=== PATIENT | male | born 1975 | race Caucasian/White ===

== ENCOUNTER 2021-05-15 12:23 | Emergency (ER) | payer OTHER ==
[~2021-05-15] VITALS: Ht 188 cm; Wt 163.3 kg
[~2021-05-15 12:23] MED LIST: AMOX500 PO; ATOR40TA; Cleocin HCl300 MG PO; HYDACE5 PO; PENVK500 PO; PIOG15; PRED20 PO; Prilosec Otc20 MG; ZESTORETIC 20-121 EA
[2021-05-15] MEDS ORDERED: CLIN300 PO (12:46)
== END 2021-05-15 12:45 | disposition home or self-care (01) ==
LOC: ER 12:23
DX: K04.7 Periapical abscess without sinus (principal); I10 Essential (primary) hypertension; Z88.0 Allergy status to penicillin; Z79.899 Other long term (current) drug therapy
CPT/HCPCS: 99282

== ENCOUNTER 2022-08-16 09:02 | Emergency (ER) | payer OTHER ==
[~2022-08-16] VITALS: Ht 188 cm; Wt 163.3 kg
[~2022-08-16 09:02] MED LIST changes: +CLIN300 PO
[2022-08-16 10:02] LABS: BASOPHILS ABSOLUTE AUTO 0.05 K/mm3 (0.00-0.23); BASOPHILS PERCENT AUTO 1 % (0-2); EOSINOPHILS ABSOLUTE AUTO 0.05 K/mm3 (0.00-0.68); EOSINOPHILS PERCENT AUTO 1 % (0-6); Hematocrit 38.5 % (37.0-53.0); IMMATURE GRAN ABSOLUTE AUTO 0.01 K/mm3 (0.00-0.10); IMMATURE GRAN PERCENT AUTO 0 % (0-1); LYMPHOCYTES ABSOLUTE AUTO 1.08 K/mm3 (0.84-5.20); LYMPHOCYTES PERCENT AUTO 17 % (21-46); MONOCYTES ABSOLUTE AUTO 0.58 K/mm3 (0.16-1.47); MONOCYTES PERCENT AUTO 9 % (4-13); Mean Corpuscular HGB 37.4 pg (26.0-34.0); Mean Corpuscular HGB Conc 36.4 g/dL (31.5-36.5); Mean Corpuscular Volume 103 fL (80-100); Mean Platelet Volume 8.9 fL (9.1-12.4); NEUTROPHILS ABSOLUTE AUTO 4.77 K/mm3 (1.96-9.15); NEUTROPHILS PERCENT AUTO 73 % (41-73); Platelet Count 413 K/mm3 (150-400); RDW Coefficient Variation 13.3 % (11.7-14.2); RDW Standard Deviation 51.2 fL (35.1-46.3); Red Blood Cell Count 3.74 M/mm3 (4.30-5.90); White Blood Cell Count 6.54 K/mm3 (4.00-11.30)
[2022-08-16 10:25] LABS: Albumin, Blood 3.1 g/dL (3.4-5.0); Albumin/Globulin Ratio 0.9 (0.8-1.8); Bilirubin, Total 0.6 mg/dL (0.1-1.0); Bun/Creatinine Ratio 11.1 (12.0-20.0); Creatinine, Blood 0.63 mg/dL (0.60-1.20); Globulin, Blood 3.6 g/dL (2.2-4.0); Total Protein, Blood 6.7 g/dL (6.4-8.2)
== END 2022-08-16 13:26 | disposition home or self-care (01) ==
LOC: ER 09:02
PROVIDERS: Emergency Medicine
DX: R20.2 Paresthesia of skin (principal); M54.9 Dorsalgia, unspecified; I10 Essential (primary) hypertension; J44.9 Chronic obstructive pulmonary disease, unspecified; F17.200 Nicotine dependence, unspecified, uncomplicated
CPT/HCPCS: 36415; 80053; 85025; 93005; 93010; 99284-25

== ENCOUNTER 2022-12-04 01:37 | Inpatient (IN) | payer OTHER ==
[~2022-12-04] VITALS: Ht 188 cm; Wt 151.0 kg
[~2022-12-04 01:37] MED LIST changes: -ATOR40TA; +ATOR40TA PO; +OMEP20ER PO; -Prilosec Otc20 MG; -ZESTORETIC 20-121 EA; +ZESTORETIC 20-121 EA PO
[2022-12-04 02:19] LABS: BASOPHILS ABSOLUTE AUTO 0.02 K/mm3 (0.00-0.23); BASOPHILS PERCENT AUTO 0 % (0-2); EOSINOPHILS PERCENT AUTO 0 % (0-6); Hemoglobin 16.8 g/dL (13.5-17.5); IMMATURE GRAN ABSOLUTE AUTO 0.04 K/mm3 (0.00-0.10); IMMATURE GRAN PERCENT AUTO 0 % (0-1); LYMPHOCYTES ABSOLUTE AUTO 0.87 K/mm3 (0.84-5.20); LYMPHOCYTES PERCENT AUTO 9 % (21-46); MONOCYTES ABSOLUTE AUTO 1.03 K/mm3 (0.16-1.47); MONOCYTES PERCENT AUTO 11 % (4-13); Mean Corpuscular HGB 33.1 pg (26.0-34.0); Mean Corpuscular HGB Conc 34.3 g/dL (31.5-36.5); Mean Corpuscular Volume 97 fL (80-100); Mean Platelet Volume 9.5 fL (9.1-12.4); NEUTROPHILS ABSOLUTE AUTO 7.58 K/mm3 (1.96-9.15); NEUTROPHILS PERCENT AUTO 80 % (41-73); Platelet Count 255 K/mm3 (150-400); RDW Coefficient Variation 16.4 % (11.7-14.2); RDW Standard Deviation 58.4 fL (35.1-46.3); Red Blood Cell Count 5.07 M/mm3 (4.30-5.90); White Blood Cell Count 9.54 K/mm3 (4.00-11.30)
[2022-12-04 02:32] LABS: Albumin, Blood 2.8 g/dL (3.4-5.0); Albumin/Globulin Ratio 0.7 (0.8-1.8); Bilirubin, Total 1.9 mg/dL (0.1-1.0); Bun/Creatinine Ratio 13.4 (12.0-20.0); Creatinine, Blood 0.82 mg/dL (0.60-1.20); Globulin, Blood 4.2 g/dL (2.2-4.0); Potassium, Blood 3.3 mmol/L (3.5-5.5)
[2022-12-04 07:43] LABS: Bun/Creatinine Ratio 16.1 (12.0-20.0); Calcium, Blood 8.8 mg/dL (8.5-10.1); Creatinine, Blood 0.68 mg/dL (0.60-1.20); Potassium, Blood 3.6 mmol/L (3.5-5.5)
[2022-12-05] MEDS ORDERED: Prinivil10 MG PO (02:19)
[2022-12-05] MEDS ORDERED: FLUT1DIS5 INH (08:32)
[2022-12-05 09:34] LABS: BASOPHILS ABSOLUTE AUTO 0.02 K/mm3 (0.00-0.23); BASOPHILS PERCENT AUTO 0 % (0-2); EOSINOPHILS ABSOLUTE AUTO 0.03 K/mm3 (0.00-0.68); EOSINOPHILS PERCENT AUTO 0 % (0-6); Hematocrit 43.4 % (37.0-53.0); IMMATURE GRAN ABSOLUTE AUTO 0.02 K/mm3 (0.00-0.10); IMMATURE GRAN PERCENT AUTO 0 % (0-1); LYMPHOCYTES ABSOLUTE AUTO 1.02 K/mm3 (0.84-5.20); LYMPHOCYTES PERCENT AUTO 13 % (21-46); MONOCYTES ABSOLUTE AUTO 1.16 K/mm3 (0.16-1.47); MONOCYTES PERCENT AUTO 15 % (4-13); Mean Corpuscular HGB 33.2 pg (26.0-34.0); Mean Corpuscular HGB Conc 34.6 g/dL (31.5-36.5); Mean Corpuscular Volume 96 fL (80-100); NEUTROPHILS ABSOLUTE AUTO 5.65 K/mm3 (1.96-9.15); NEUTROPHILS PERCENT AUTO 71 % (41-73); Platelet Count 209 K/mm3 (150-400); RDW Coefficient Variation 16.6 % (11.7-14.2); RDW Standard Deviation 58.6 fL (35.1-46.3); Red Blood Cell Count 4.52 M/mm3 (4.30-5.90)
[2022-12-05 09:47] LABS: Calcium, Blood 8.1 mg/dL (8.5-10.1); Creatinine, Blood 0.67 mg/dL (0.60-1.20); Potassium, Blood 3.4 mmol/L (3.5-5.5)
[2022-12-06 07:07] LABS: Albumin, Blood 2.1 g/dL (3.4-5.0); Albumin/Globulin Ratio 0.6 (0.8-1.8); Bilirubin, Total 1.1 mg/dL (0.1-1.0); Bun/Creatinine Ratio 19.3 (12.0-20.0); Creatinine, Blood 0.62 mg/dL (0.60-1.20); Globulin, Blood 3.5 g/dL (2.2-4.0); Potassium, Blood 3.5 mmol/L (3.5-5.5); Total Protein, Blood 5.6 g/dL (6.4-8.2)
[2022-12-06] MEDS ORDERED: SENNA LAXATIVE8.6 MG PO (16:03)
[2022-12-06] MEDS ORDERED: DOCU100 PO (16:03)
[2022-12-06] MEDS ORDERED: Norco 5-325 Ta1 EACH PO (16:04)
== END 2022-12-06 16:25 | disposition home or self-care (01) | DRG 330 ==
LOC: ER 01:37 → SURS 02:54 → ERHOLD 02:54 → SURS 05:05
PROVIDERS: Internal Medicine; Student in an Organized Health Care Education/Training Program; Surgery; ADMIT Internal Medicine
PROC: 0WQF4ZZ Repair Abdominal Wall, Percutaneous Endoscopic Approach (ICD-10-PCS; principal; 2022-12-04 10:45)
PROC: 0DQ84ZZ Repair Small Intestine, Percutaneous Endoscopic Approach (ICD-10-PCS; 2022-12-04 10:45)
DX: K42.0 Umbilical hernia with obstruction, without gangrene (principal); E87.1 Hypo-osmolality and hyponatremia; K91.71 Accidental puncture and laceration of a digestive system organ or structure during a digestive system procedure; Z28.21 Immunization not carried out because of patient refusal; E11.9 Type 2 diabetes mellitus without complications; I10 Essential (primary) hypertension; F17.210 Nicotine dependence, cigarettes, uncomplicated; E87.6 Hypokalemia; J44.9 Chronic obstructive pulmonary disease, unspecified; E78.5 Hyperlipidemia, unspecified; E66.01 Morbid (severe) obesity due to excess calories; Z68.38 Body mass index [BMI] 38.0-38.9, adult; Z88.0 Allergy status to penicillin; Z88.1 Allergy status to other antibiotic agents; Z79.899 Other long term (current) drug therapy; Z79.2 Long term (current) use of antibiotics; Y83.8 Other surgical procedures as the cause of abnormal reaction of the patient, or of later complication, without mention of misadventure at the time of the procedure
CPT/HCPCS: 36415; 71045; 74177; 80048; 80053; 82947; 83605; 85025; 93005; 93010; 94640; 94664; 94760; 94761; 96365-59; 96366; 96375; 99285-25; A9270; J1100; J1170; J1885; J2250; J2405; J2550; J2704; J2795; J3010; J3480; J7050; J7120; Q9967

== ENCOUNTER → 2022-12-11 | Outpatient (CLI) | payer OTHER ==
[~2022-12-11] MED LIST changes: +DOCU100 PO; +FLUT1DIS5 INH; +Norco 5-325 Ta1 EACH PO; +Prinivil10 MG PO; +SENNA LAXATIVE8.6 MG PO
== END | disposition home or self-care (01) ==
LOC: LAB 17:07 → LAB SHORT 17:07
DX: T81.42XA Infection following a procedure, deep incisional surgical site, initial encounter (principal); T81.31XA Disruption of external operation (surgical) wound, not elsewhere classified, initial encounter
CPT/HCPCS: 87070; 87075; 87077; 87186; 87205

== ENCOUNTER 2024-07-28 17:23 | Inpatient (IN) | payer OTHER ==
[~2024-07-28] VITALS: Ht 185.4 cm; Wt 164.5 kg
[2024-07-28 18:31] LABS: BASOPHILS ABSOLUTE AUTO 0.05 K/mm3 (0.00-0.23); BASOPHILS PERCENT AUTO 1 % (0-2); EOSINOPHILS ABSOLUTE AUTO 0.06 K/mm3 (0.00-0.68); EOSINOPHILS PERCENT AUTO 1 % (0-6); Hematocrit 44.2 % (37.0-53.0); Hemoglobin 15.3 g/dL (13.5-17.5); IMMATURE GRAN ABSOLUTE AUTO 0.02 K/mm3 (0.00-0.10); IMMATURE GRAN PERCENT AUTO 0 % (0-1); LYMPHOCYTES ABSOLUTE AUTO 1.39 K/mm3 (0.84-5.20); LYMPHOCYTES PERCENT AUTO 17 % (21-46); MONOCYTES PERCENT AUTO 9 % (4-13); Mean Corpuscular HGB 34.4 pg (26.0-34.0); Mean Corpuscular HGB Conc 34.6 g/dL (31.5-36.5); Mean Corpuscular Volume 99 fL (80-100); NEUTROPHILS ABSOLUTE AUTO 5.96 K/mm3 (1.96-9.15); NEUTROPHILS PERCENT AUTO 73 % (41-73); Platelet Count 385 K/mm3 (150-400); RDW Coefficient Variation 13.2 % (11.7-14.2); Red Blood Cell Count 4.45 M/mm3 (4.30-5.90); White Blood Cell Count 8.18 K/mm3 (4.00-11.30)
[2024-07-28 18:52] LABS: Albumin, Blood 3.6 g/dL (3.4-5.0); Albumin/Globulin Ratio 0.9 (0.8-1.8); Bilirubin, Total 0.6 mg/dL (0.1-1.0); Bun/Creatinine Ratio 15.7 (12.0-20.0); Calcium, Blood 9.6 mg/dL (8.5-10.1); Creatinine, Blood 0.76 mg/dL (0.60-1.20); Potassium, Blood 3.5 mmol/L (3.5-5.5); Total Protein, Blood 7.6 g/dL (6.4-8.2)
[2024-07-28] MEDS ORDERED: LISINOPRIL-HCT1 EACH PO (22:18)
[2024-07-28] MEDS ORDERED: FLUTICASONE-SA1 EAC9 INH (22:18)
[2024-07-28] MEDS ORDERED: ROSUVASTATIN CA10 MG PO (22:18)
[2024-07-28] MEDS ORDERED: MELO7.5 PO (22:18)
[2024-07-28] MEDS ORDERED: ACYCLOVIR400 MG PO (22:19)
[2024-07-29] MEDS ORDERED: Atorvastatin 40 MG Tab PO SCH ×2 (03:00→18:00)
[2024-07-29 03:14] VITALS: BP 150/103
[2024-07-29] MEDS ORDERED: Mometasone/Formoterol MDI 200/5 mcg 13 GM INH SCH (03:15)
[2024-07-29] MEDS ORDERED: LORazepam 2 MG/ML 1ML Injection IV PRN (03:35)
[2024-07-29] MEDS ORDERED: NS 1,000 ML IV SCH (04:00)
[2024-07-29] MEDS ORDERED: Folic Acid 1 MG in NS 50 ML IV SCH (04:00)
[2024-07-29] MEDS ORDERED: Thiamine HCl 100 MG in NS 50 ML IV SCH (04:07)
[2024-07-29 04:20] LABS: BASOPHILS ABSOLUTE AUTO 0.04 K/mm3 (0.00-0.23); BASOPHILS PERCENT AUTO 1 % (0-2); EOSINOPHILS ABSOLUTE AUTO 0.06 K/mm3 (0.00-0.68); EOSINOPHILS PERCENT AUTO 1 % (0-6); Hematocrit 41.5 % (37.0-53.0); Hemoglobin 14.4 g/dL (13.5-17.5); IMMATURE GRAN ABSOLUTE AUTO 0.01 K/mm3 (0.00-0.10); IMMATURE GRAN PERCENT AUTO 0 % (0-1); LYMPHOCYTES ABSOLUTE AUTO 1.36 K/mm3 (0.84-5.20); LYMPHOCYTES PERCENT AUTO 19 % (21-46); MONOCYTES ABSOLUTE AUTO 0.77 K/mm3 (0.16-1.47); MONOCYTES PERCENT AUTO 11 % (4-13); Mean Corpuscular HGB 34.3 pg (26.0-34.0); Mean Corpuscular HGB Conc 34.7 g/dL (31.5-36.5); Mean Corpuscular Volume 99 fL (80-100); Mean Platelet Volume 8.8 fL (9.1-12.4); NEUTROPHILS ABSOLUTE AUTO 4.83 K/mm3 (1.96-9.15); NEUTROPHILS PERCENT AUTO 68 % (41-73); Platelet Count 308 K/mm3 (150-400); RDW Coefficient Variation 13.2 % (11.7-14.2); RDW Standard Deviation 47.9 fL (35.1-46.3); White Blood Cell Count 7.07 K/mm3 (4.00-11.30)
[2024-07-29 04:48] LABS: Alanine Aminotransfer (ALT/SGP 18 U/L (12-78); Albumin, Blood 3.4 g/dL (3.4-5.0); Albumin/Globulin Ratio 0.9 (0.8-1.8); Alk Phos 59 U/L (50-136); Anion Gap 14 mmol/L (3-11); Aspartate Aminotrans (AST/SGOT 21 U/L (12-37); Bilirubin, Total 0.7 mg/dL (0.1-1.0); Blood Urea Nitrogen 12 mg/dL (8-24); CO2, Blood 28 mmol/L (21-32); Calcium, Blood 9.3 mg/dL (8.5-10.1); Chloride, Blood 95 mmol/L (98-108); Creatinine, Blood 0.71 mg/dL (0.60-1.20); Ethanol (Alcohol), Blood, Med <3 mg/dL; Globulin, Blood 3.7 g/dL (2.2-4.0); Glomerular Filtration Rate 115 (60-); Glucose, Blood 102 mg/dL (70-99); Magnesium, Blood 1.6 mg/dL (1.6-2.4); Phosphorus, Blood 3.5 mg/dL (2.5-4.9); Potassium, Blood 3.3 mmol/L (3.5-5.5); Sodium, Blood 134 mmol/L (136-145); Total Protein, Blood 7.1 g/dL (6.4-8.2)
--- NOTE | 2024-07-29 05:47 | NUR ---
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 NURO ASSESSMENT PATIENT IS UNABLE TO FEEL PRESSURE TO BILATERAL LOWER EXTREMITIES BUT IS ABLE TO MOVE THEM. PATIENT SAID THAT HE IS UNABLE TO USE HIS LEGS TO WALK DUT TO EXTREME WEAKNESS AND NUMBNESS. PATIENT ALSO COMPLAINED OF DIFFICULITY SWALLING ANYTHING. PLAN IS TO HAVE ECHO AND MRI DONE TODAY. PATIENT IS NPO CURRENTLY.
[2024-07-29] MEDS ORDERED: Omeprazole 20 MG CapCR PO SCH (06:00)
[2024-07-29] MEDS ORDERED: Potassium Chloride 10 Meq Tablet SA PO ONE (06:00)
[2024-07-29 07:19] VITALS: BP 133/93
[2024-07-29] MEDS ORDERED: Multivitamins 1 Tab PO SCH (09:00)
[2024-07-29] MEDS ORDERED: HydroCHLOROthiazide 25 mg Tab PO SCH (09:00)
[2024-07-29] MEDS ORDERED: Meloxicam 7.5 MG Tab PO SCH (09:00)
[2024-07-29] MEDS ORDERED: Enoxaparin 40 MG/0.4 ML SYR SC SCH (09:00)
[2024-07-29] MEDS ORDERED: Docusate Sodium 100 MG Cap PO SCH (09:00)
[2024-07-29] MEDS ORDERED: Lisinopril 20 MG Tab PO SCH (09:00)
[2024-07-29 12:11] LABS: U Amphetamine Screen Not Detected; U Barbituate Screen Not Detected; U Benzodiazapine Screen Not Detected; U Buprenorphine Screen Not Detected; U Cannabinoids Screen Not Detected; U Cocaine Screen Not Detected; U Methadone Screen Not Detected; U Methamphetamine Screen Not Detected; U Opiates Screen Not Detected; U Oxycodone Screen Not Detected; U Phencyclidine Screen Not Detected
[2024-07-29 14:49] VITALS: BP 98/75
[2024-07-29] MEDS ORDERED: Thiamine HCl 500 MG in NS 100 ML IV SCH (16:00)
--- NOTE | 2024-07-29 17:03 | NUR ---
SHIFT SUMMARY PT IS A/OX4. PT DESCRIBES BEING UNABLE TO FEEL TOUCH OR PRESSURE TO THE BILATERAL LOWER EXTREMITIES HOWEVER IS STILL ABLE TO MOVE THEM. PT ALSO DESCRIBES NUMBNESS TO BILATERAL UPPER EXTREMITIES AND TOUNGUE/MOUTH. PT EVALUATED BY SPEECH THERAPY, PT/OT TODAY. PT NOW ON A REGULAR DIET WITH ORDERS TO HOLD MEALS IF LETHARGIC OR IN RESPIRATORY DISTRESS AND TO EAT AT 90 DEGREES DURING AND 30-60 MINUTES AFTER MEALS. PT ABLE TO TAKE PILLS WHOLE WITH WATER. ECHO PERFORMED TODAY, MRI UNABLE TO BE PERFORMED DUE TO THE PT'S WEIGHT. SEIZURE PRECAUTIONS STILL IN PLACE. LR RUNNING @ 150 THROUGHOUT THE SHIFT. PT UP WITH 1 PERSON ASSISTANCE AND FWW TO BS. NO SIGNS OF ALCOHOL WITHDRAWAL ASSESSED DURING THIS SHIFT. ON RA, NO TELE. PT IS PLEASANT AND COOPERATIVE WITH CARE AND USES THE CALL LIGHT APPROPRIATELY.
[2024-07-29 19:14] VITALS: BP 126/76
[2024-07-29] MEDS ORDERED: Albuterol 2.5 MG/3 ML VIAL INH PRN (23:20)
[2024-07-30 02:27] VITALS: BP 126/84
--- NOTE | 2024-07-30 05:25 | NUR ---
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 PATIENT TAKES PILLS WHOLE WITH WATER BUT HE IS STILL HAVE SOME DIFFICULITY SWALLOWING. PATIENT STILL HAVE NUMBNESS IN LOWER EXTREMITIES BUT IS ABLE TO PIVOT TO THE BEDSIDE COMMODE WITH ASSISTANCE. PATIENT USES THE URINAL. PATIENT CALLS APPROPRIATELY.
[2024-07-30 07:35] VITALS: BP 104/76
[2024-07-30 08:30] LABS: Calcium, Blood 8.9 mg/dL (8.5-10.1); Creatinine, Blood 0.72 mg/dL (0.60-1.20); Magnesium, Blood 1.6 mg/dL (1.6-2.4); Potassium, Blood 3.3 mmol/L (3.5-5.5)
[2024-07-30] MEDS ORDERED: NS 250 ML IV PRN (08:35)
[2024-07-30] MEDS ORDERED: Potassium Chloride 20 MEQ TabCR PO ONE (11:20)
[2024-07-30] MEDS ORDERED: Mag Sulfate 1 GM/D5% 100ML 100 ML IV STA (11:29)
[2024-07-30 12:13] LABS: International Normalized Ratio 1.04; Prothrombin Time Results 11.1 Sec (9.7-11.5)
--- NOTE | 2024-07-30 13:39 | NUR ---
RECIEVED A CALL FROM IMAGING- PT HAD A LUMBAR PUNCTURE ORDERED TODAY, HOWEVER HE RECIEVED HIS DOSE OF LOVENOX BEFORE THE PROCEDURE WAS ORDERED. LUMBAR PUNCTURE WILL BE PERFORMED TOMORROW PER IMAGING. LOVENOX WAS DC'D BY DR BENNETT AFTER THE PROCEDURE WAS ORDERED.
[2024-07-30 15:23] VITALS: BP 110/90
--- NOTE | 2024-07-30 16:51 | NUR ---
SHIFT SUMMARY- PT ALERT AND ORIENTED. GRADUATED COMPRESSION STOCKINGS WERE PLACED ON THE PT THIS MORNING. PT SATES HIS LEGS ACTUALLY FEEL BETTER THAN THEY HAVE IN A LONG TIME. THE BURNING IS GREATLY IMPROVED SINCE THE STOCKINGS WERE PLACED. DR BENNETT ORDERED A SPINAL TAP TO SEND OFF CSF FOR MULTIPLE DIFFERENT LAB TESTS. PLAN IS FOR THE PT TO HAVE THIS DONE TOMORROW. PT IS A 2PA WITH STAND PIVOT TRANSFERS. HE IS CURRENTLY SITTING UP AT THE EDGE OF THE BED, CALL LIGHT IN REACH NO S&S OF DISTRESS NOTED.
[2024-07-30 19:10] VITALS: BP 103/69
[2024-07-31] VITALS (15 sets, daily range): BP systolic 104–140; BP diastolic 66–90
--- NOTE | 2024-07-31 06:49 | NUR ---
NO ACUTE CHANGES, VSS. NO CHANGES TO PT NUMBNESS BUT STATED HE FEELS BETTER THAN HE DID ON SUNDAY.
[2024-07-31 07:03] LABS: Bun/Creatinine Ratio 13.1 (12.0-20.0); Calcium, Blood 9.2 mg/dL (8.5-10.1); Creatinine, Blood 0.76 mg/dL (0.60-1.20); Magnesium, Blood 1.6 mg/dL (1.6-2.4); Potassium, Blood 3.6 mmol/L (3.5-5.5)
[2024-07-31] MEDS ORDERED: Potassium Chloride 20 MEQ TabCR PO ONE (07:30)
[2024-07-31] MEDS ORDERED: Magnesium Sulf 2 GM/Water 50ML 50 ML IV ONE (07:35)
[2024-07-31 15:32] LABS: Automated CSF RBC Count 0.057 M/mm3 (0-0); Automated CSF WBC Count 0.019 K/mm3 (0-5)
[2024-07-31 15:36] LABS: RBC Count, CSF 57000 /mm3 (0-0); WBC Count, CSF 19 /mm3 (0-5)
[2024-07-31 15:56] LABS: Appearance, CSF Hazy (Clear); Color, CSF Red (No Color)
[2024-07-31] MEDS ORDERED: Acetaminophen 325 MG TABLET PO PRN (17:45)
--- NOTE | 2024-07-31 18:45 | NUR ---
SHIFT SUMMARY- PT ALERT AND ORIENTED 1PA WITH TRANSFERS. PT HAD A LP THIS AFTERNOON AND HAD A COMPLAINT OF PAIN IN HIS BACK. CALLED DR AND RECIEVED PRN TYLENOL ORDER. PT WAS MEDICATED WITH THE TYLEOL OT THIS EVENING FOR PAIN /10. PT STATED IT WAS GOOD EFFECT AND RATED THE PAIN AT 4/10 ON FOLLOW UP. PT IN BED, CALL LIGHT IN REACH NO S&S OF DISTRESS NOTED. PT CALLS APPROPRIATELY.
[2024-07-31] MEDS ORDERED: IMMUN GLOB G(IGG)/PRO/IGA 0-50 100 ML IV SCH ×2 (19:00→22:00)
[2024-08-01 03:11] VITALS: BP 127/91
--- NOTE | 2024-08-01 06:50 | NUR ---
NO ACUTE CHANGES DURING SHIFT. LUMBAR PUNCTURE PERFORMED YESTERDAY. IV IG ADMINISTERED NO ADVERESE REACTION. LARGE BM OVERNIGHT.
[2024-08-01 07:29] VITALS: BP 126/96
[2024-08-01] MEDS ORDERED: HYDROcodone 5-APAP 325 TAB PO PRN (09:10)
--- NOTE | 2024-08-01 14:35 | NUR ---
pt arrived PT ARRIVED TO ROOM 352 FROM ROOM 325, VIA CHAIR. THE PT IS A/OX2, PT IS IN A RODNEY VEST. REPORT TAKE FROM SHAUNA GARCIA. VIRTUAL CAMERA WITH THE PATIENT
[2024-08-01 15:16] VITALS: BP 126/97
--- NOTE | 2024-08-01 17:28 | NUR ---
SHIFT SUMMARY: PATIENT A/OX4, PLEASANT AND COOPERATIVE c CARE. PATIENT REPORTS PAIN 7/10 TO BACK AND FEET, MEDICATED c PRN PO NORCO c GREAT EFFECT. PATIENT DENIES CP/PRESSURE, N/V, DIZZINESS AND SOB. PATIENT HAS GREAT APPETITE, DENIES ANY ISSUES SWALLOWING FOOD AND LIQUID INTAKE, CONTINENT OF BLADDER, USES URINAL INDEPENDENTLY T/O SHIFT. PATIENT WORK c PT THIS AM, RECOMMENDING SNF. PATIENT SAT UP IN THE CHAIR FOR ABOUT 6 1/2 HRS THIS SHIFT, TOLERATING WELL. PATIENT RECEIVED SCHEDULED MEDS PER EMAR. VITAL SIGNS REVIEWED. CALL LIGHT IN REACH.
[2024-08-01] MEDS ORDERED: Atorvastatin 40 MG Tab PO SCH (18:00)
--- NOTE | 2024-08-01 18:33 | NUR ---
DINNER INTAKE NOTE: PATIENT ATE 50% FOR DINNER. PATIENT STATED "THE MORE I ATE A REGULAR FOOD THE SOONER I WILL GO HOME AND I DON'T NEED THIS IV."
[2024-08-01 19:55] VITALS: BP 117/70
[2024-08-01 22:31] VITALS: BP 129/86
[2024-08-01 23:11] VITALS: BP 132/89
[2024-08-01 23:22] LABS: MUSK AB IGG CBA IFA SCREEN, S <1:10 (<1:10)
[2024-08-02] VITALS (11 sets, daily range): BP systolic 107–126; BP diastolic 69–93
--- NOTE | 2024-08-02 04:57 | NUR ---
SHIFT SUMMARY: PT IS A 48 YEAR OLD MALE FULL CODE. PT IS ON RA AND HAS EXPERIENCED NUMBNESS TO FEET AND HANDS. THE PT IS A NICE AND PLEASANT PT WHO IS A&OX4.PT IS A 1 ASSIST WITH FWW TO THE BATHROOM AND ALSO USES THE URINAL. PT ENJOYS SITTING UP IN HIS CHAIR AND HAS SOME BACK PAIN FROM LUMBAR PUNCTURE DONE YESTERDAY. PT USES CALL LIGHT APPROPRIATELY AND IS RESTING.
--- NOTE | 2024-08-02 09:16 | NUR ---
CBG NOTE: PATIENT CBG HAS BEEN CONSISTENT IN THE LOW 130'S SINCE ADMISSION. NOTIFIED DR. BENNETT, RECEIVED ORDER TO DC'D CBG NOW.
[2024-08-02 11:07] LABS: ACETYLCHOLINE MODULATING AB 0 % (<=45)
--- NOTE | 2024-08-02 17:47 | NUR ---
SHIFT SUMMARY: PATIENT A/OX4, PLEASANT AND COOPERATIVE c CARE. PATIENT MEDICATED FOR PAIN TO LOWER BACK PER EMAR c GOOD EFFECT. PATIENT REPORTS NUMBNESS TO L HAND HAS IMPROVED, LIPS AND FEET ABOUT THE SAME FROM YESTERDAY c NO CHANGES. PATIENT HAS GREAT APPETITE, CONTINENT OF BLADDER, USES URINAL INDEPENDENTLY T/O SHIFT. PATIENT SAT UP IN THE RECLINER CHAIR FOR ABOUT 5 HRS THIS SHIFT, TOLERATING WELL. VITAL SIGNS REVIEWED. CALL LIGHT IN REACH.
[2024-08-03 03:00] VITALS: BP 107/72
--- NOTE | 2024-08-03 03:45 | NUR ---
SHIFT SUMMARY 48 YR M ADMITTED ON 07/28/24. FULL CODE. NO ACUTE CHANGES THIS SHIFT. NO NEW COMPLAINTS THIS SHIFT. PT IS PLEASANT AND COOPERATIVE WITH CARE. HE RECEIVED 3 BOTTLES OF IVIG THIS SHIFT AND TOLERATED IT WELL. MEDICATED FOR BACK PAIN AT BEDTIME. CALLS APPROPRIATELY FOR ASSISTANCE. VERY FRIENDLY AND COOPERATIVE WITH CARE. BED IN LOW POSITION AND CALL LIGHT IN REACH.
[2024-08-03 05:47] LABS: Hematocrit 38.7 % (37.0-53.0); Hemoglobin 13.1 g/dL (13.5-17.5); Mean Corpuscular HGB 34.5 pg (26.0-34.0); Mean Corpuscular HGB Conc 33.9 g/dL (31.5-36.5); Mean Corpuscular Volume 102 fL (80-100); Mean Platelet Volume 9.9 fL (9.1-12.4); Platelet Count 345 K/mm3 (150-400); RDW Coefficient Variation 13.2 % (11.7-14.2); RDW Standard Deviation 49.6 fL (35.1-46.3); White Blood Cell Count 6.94 K/mm3 (4.00-11.30)
[2024-08-03 06:13] LABS: Bun/Creatinine Ratio 15.4 (12.0-20.0); Calcium, Blood 9.4 mg/dL (8.5-10.1); Creatinine, Blood 0.71 mg/dL (0.60-1.20); Potassium, Blood 4.1 mmol/L (3.5-5.5)
[2024-08-03 07:33] VITALS: BP 126/92
[2024-08-03] MEDS ORDERED: Ibuprofen 400 MG Tab PO PRN (08:55)
[2024-08-03 15:02] VITALS: BP 122/76
--- NOTE | 2024-08-03 17:16 | NUR ---
SHIFT SUMMARY: PATIENT A/OX4, PLEASANT AND COOPERATIVE c CARE. PATIENT REPORTS NUMBNESS AND STRENGTH HAS IMPROVED. PATIENT MEDICATED FOR PAIN TO HIS BACK PER EMAR c GOOD EFFECT. PATIENT HAS EXCELLENT APPETITE, CONTINENT OF BLADDER AND USES URINAL INDEPENDENTLY T/O SHIFT. PATIENT SAT UP TO RECLINER CHAIR FOR THE MAJORITY OF THIS SHIFT. PATIENT RECEIVED SCHEDULED MEDS PER EMAR. VITAL SIGNS REVIEWED. CALL LIGHT IN REACH.
[2024-08-03 20:14] VITALS: BP 119/77
[2024-08-03] MEDS ORDERED: HYDROcodone 7.5-APAP 325 TAB PO PRN (23:35)
[2024-08-04 02:22] VITALS: BP 129/75
--- NOTE | 2024-08-04 05:54 | NUR ---
Patient alert and oriented, VSS, resting comfortably in bed and recliner overnight. Patient tolerated IVIG doses well. Pt. using urinal, restroom for needs overnight. PRN pain medication given once by request.
[2024-08-04 07:47] VITALS: BP 124/80
[2024-08-04] MEDS ORDERED: Thiamine HCl 100 MG Tab PO SCH (09:00)
[2024-08-04] MEDS ORDERED: Folic Acid 1 MG TAB PO SCH (09:00)
[2024-08-04 14:36] LABS: CHOL/HDL RATIO 1.7; Cholesterol 90 mg/dL (50-200); HDL Cholesterol 53 mg/dL (>39); LDL/HDL RATIO 0.4; Low Density Lipoprotein Chol 22 mg/dL (0-110); Triglycerides 73 mg/dL (30-160); Very Low Density Lipoprot Chol 14 mg/dL (6-32)
[2024-08-04 15:21] VITALS: BP 123/79
--- NOTE | 2024-08-04 18:01 | NUR ---
SUMMARY- PT A/O X4, CONT WITH NEURO DEFICITS OF BLE WEAKNESS AND NUMBNESS AROUND LIPS. PT HAD BASELINE NUMBNESS IN LEGS. PT USES CALL LIGHT AND KNOWS HIS LIMITS. SBA TO CHAIR ADQ STRENGTH FOR PIVOT TX'S. PHYSICAL THERAPY STOOD PT AT BEDSIDE AND STEPPED SIDE TO SIDE BUT NO AMBULATION. PT ALSO SCOOT CHAIR TO BATHROOM AND USED WALKER GOT UP TO USE TOILET, RN SBA, TOLERATED ACT WELL. PT WILL HAVE LAST IVIG TX TONIGHT AND BE ABLE TO DC TO [facility]. WILL REPORT TO ROSELINE RN
[2024-08-04 19:35] VITALS: BP 111/66
[2024-08-05 03:22] VITALS: BP 129/91
--- NOTE | 2024-08-05 05:02 | NUR ---
FUR TANNER SUMMARY NO ACUTE CHANGES OVERNIGHT. PT CONTINUES TO EXPERIENCE BILATERAL WEAKNESS AND NUMBNESS. COMPLETED LAST DOSE OF IVIG. ANTICIPATE HE WILL BE ELIGIBLE TO DISCHARGE TO SNF TODAY.
[2024-08-05 07:38] VITALS: BP 118/76
[2024-08-05] MEDS ORDERED: Aspirin 81 MG Chew PO SCH (09:00)
[2024-08-05] MEDS ORDERED: Cyanocobalamin 500 MCG Tab PO SCH (09:00)
[2024-08-05 09:21] LABS: SARS-Cov-2 (COVID-19) PCR, MMC NEGATIVE (NEGATIVE)
[2024-08-05] MEDS ORDERED: ASPI81CH PO (11:21)
[2024-08-05] MEDS ORDERED: DOCU100 PO (11:22)
[2024-08-05] MEDS ORDERED: B-121000 MC3 PO (11:22)
[2024-08-05] MEDS ORDERED: Norco 7.5-3251 EACH PO (11:23)
--- NOTE | 2024-08-05 14:07 | NUR ---
PT DISCHARGED TO [facility] AT 1400 VIA TRANSPORT WHEELCHAIR. REPORT CALLED TO PATRICK. BELONGINGS SENT WITH PT. PACKET SENT WITH PT/ HARD SCRIPT MAURICE 7.5MG IN PACKET.
== END 2024-08-05 14:13 | DRG 95 ==
LOC: ER 17:23 → MEDS 17:24
PROVIDERS: Emergency Medicine; Family Medicine; Internal Medicine; ADMIT Internal Medicine
PROC: 009U3ZX Drainage of Spinal Canal, Percutaneous Approach, Diagnostic (ICD-10-PCS; principal; 2024-07-31)
PROC: 30233S1 Transfusion of Nonautologous Globulin into Peripheral Vein, Percutaneous Approach (ICD-10-PCS; 2024-07-31)
PROC: HZ2ZZZZ Detoxification Services for Substance Abuse Treatment (ICD-10-PCS; 2024-07-31)
DX: G61.0 Guillain-Barre syndrome (principal); E87.1 Hypo-osmolality and hyponatremia; Z68.42 Body mass index [BMI] 45.0-49.9, adult; Z88.0 Allergy status to penicillin; R47.81 Slurred speech; I10 Essential (primary) hypertension; E11.42 Type 2 diabetes mellitus with diabetic polyneuropathy; E87.5 Hyperkalemia; F17.210 Nicotine dependence, cigarettes, uncomplicated; E66.01 Morbid (severe) obesity due to excess calories; F10.20 Alcohol dependence, uncomplicated; R13.10 Dysphagia, unspecified; K59.09 Other constipation; E78.5 Hyperlipidemia, unspecified; J44.9 Chronic obstructive pulmonary disease, unspecified; Z98.890 Other specified postprocedural states; Z79.899 Other long term (current) drug therapy
CPT/HCPCS: 36415; 62328; 70450; 70496; 70498; 71046; 80048; 80053; 80061; 80320; 82607; 82746; 82947; 83735; 84100; 84157; 84443; 84484; 85025; 85027; 85610; 86043; 86366; 89051; 92526; 92610; 93005; 93010; 94640; 94664; 94760; 96365; 96372; 96375; 96376; 97110; 97112; 97162; 97165; 97530; 99285-25; A9270; C8929; G0378; J1459; J1650; J3411; J3475; J7030; J7050; Q9957; Q9967; U0002

== ENCOUNTER 2024-11-21 12:13 | Inpatient (IN) | payer OTHER ==
[~2024-11-21] VITALS: Ht 188 cm; Wt 163.3 kg
[2024-11-21] VITALS (10 sets, daily range): BP systolic 85–108; BP diastolic 54–95
[~2024-11-21 12:13] MED LIST changes: +ACYCLOVIR400 MG PO; +ASPI81CH PO; +B-121000 MC3 PO; +FLUTICASONE-SA1 EAC9 INH; +LISINOPRIL-HCT1 EACH PO; +MELO7.5 PO; +Norco 7.5-3251 EACH PO; +ROSUVASTATIN CA10 MG PO
[2024-11-21 13:23] LABS: BASOPHILS ABSOLUTE AUTO 0.05 K/mm3 (0.00-0.23); BASOPHILS PERCENT AUTO 0 % (0-2); EOSINOPHILS ABSOLUTE AUTO 0.03 K/mm3 (0.00-0.68); EOSINOPHILS PERCENT AUTO 0 % (0-6); Hemoglobin 18.3 g/dL (13.5-17.5); IMMATURE GRAN ABSOLUTE AUTO 0.05 K/mm3 (0.00-0.10); IMMATURE GRAN PERCENT AUTO 0 % (0-1); LYMPHOCYTES ABSOLUTE AUTO 1.12 K/mm3 (0.84-5.20); LYMPHOCYTES PERCENT AUTO 8 % (21-46); MONOCYTES ABSOLUTE AUTO 1.81 K/mm3 (0.16-1.47); MONOCYTES PERCENT AUTO 13 % (4-13); Mean Corpuscular HGB 33.5 pg (26.0-34.0); Mean Corpuscular HGB Conc 33.9 g/dL (31.5-36.5); Mean Corpuscular Volume 99 fL (80-100); Mean Platelet Volume 8.7 fL (9.1-12.4); NEUTROPHILS ABSOLUTE AUTO 10.45 K/mm3 (1.96-9.15); NEUTROPHILS PERCENT AUTO 77 % (41-73); Platelet Count 427 K/mm3 (150-400); RDW Coefficient Variation 17.1 % (11.7-14.2); RDW Standard Deviation 62.5 fL (35.1-46.3); Red Blood Cell Count 5.46 M/mm3 (4.30-5.90); White Blood Cell Count 13.51 K/mm3 (4.00-11.30)
[2024-11-21] MEDS ORDERED: Lactated Ringer's 1,000 ML IV ONE ×2 (13:40→17:30)
[2024-11-21] MEDS ORDERED: Ondansetron HCl 2 MG / ML 2ML Vial IV ONE (13:45)
[2024-11-21 13:46] LABS: Albumin, Blood 3.6 g/dL (3.4-5.0); Albumin/Globulin Ratio 0.8 (0.8-1.8); Bilirubin, Total 0.9 mg/dL (0.1-1.0); Bun/Creatinine Ratio 15.7 (12.0-20.0); Calcium, Blood 10.3 mg/dL (8.5-10.1); Creatinine, Blood 1.4 mg/dL (0.60-1.20); Globulin, Blood 4.8 g/dL (2.2-4.0); Total Protein, Blood 8.4 g/dL (6.4-8.2)
[2024-11-21] MEDS ORDERED: Potassium Chl 20MEQ/Water100ML 100 ML IV SCH (14:05)
[2024-11-21] MEDS ORDERED: Potassium Chloride 40 MEQ in NS 250 ML IV SCH (14:30)
[2024-11-21] MEDS ORDERED: Oxymetazoline 0.05% Nasal Relief Spray 15mL BTL ONE (14:40)
[2024-11-21] MEDS ORDERED: FLU VACC TS2024-25(6MOS UP)/PF 45 MCG/0.5 ML SYRINGE IM SCH (15:55)
[2024-11-21] MEDS ORDERED: Acetaminophen 325 MG TABLET PO PRN (15:55)
[2024-11-21] MEDS ORDERED: HYDROmorphone HCl/Pf 1MG SYR IV PRN (16:00)
[2024-11-21] MEDS ORDERED: Ondansetron HCl 2 MG / ML 2ML Vial IV PRN (16:00)
[2024-11-21] MEDS ORDERED: Lactated Ringer's 1,000 ML IV SCH (16:00)
[2024-11-21] MEDS ORDERED: Ketorolac Tromethamine 30mg Vial IV PRN (16:05)
[2024-11-21 16:57] LABS: Base Excess Venous 20.4 mmol/L; Bicarbonate Venous 41.9 mmol/L (24.0-30.0); PCO2 Venous 47.2 mmHg (38-42)
[2024-11-21 16:58] LABS: pH Blood Venous 7.56 (7.34-7.37)
[2024-11-21] MEDS ORDERED: CeFAZolin Sodium 3,000 MG in NS 100 ML IV SCH (18:30)
--- NOTE | 2024-11-21 19:43 | NUR ---
TRANSFER PATIENT LEFT TO THE OR ON A GURNEY.
--- NOTE | 2024-11-21 19:50 | NUR ---
ADMISSION: REPORT RECEIVED FROM ED RN. PT TO UNIT AT ABOUT 1815. PT A/O, VSS. ABLE TO TRANSFER TO BED FROM [facility]. SP02 STABLE ON 2L NC. LR HUNG AND PT ORIENTED TO ROOM AND INSTRUCTED TO USE CALL LIGHT FOR ASSISTANCE. REPORT PASSED TO NOC RN
[2024-11-21] MEDS ORDERED: Rocuronium Bromide 10 MG/ML 5ML Injection IV ONE (20:09)
[2024-11-21] MEDS ORDERED: Dexamethasone Sod Phos 10 MG/ML 1ML VIAL ONE (20:09)
[2024-11-21] MEDS ORDERED: Ondansetron HCl 2 MG / ML 2ML Vial ONE ×2 (20:09→21:14)
[2024-11-21] MEDS ORDERED: propofoL 20 ML IV ONE ×2 (20:10→20:19)
[2024-11-21] MEDS ORDERED: HYDROmorphone HCl/Pf 1MG SYR ONE (20:10)
[2024-11-21] MEDS ORDERED: FentaNYL Citrate 50 MCG/ML 2 ML Injection ONE (20:10)
[2024-11-21] MEDS ORDERED: Sugammadex Sodium 200 MG/2ML SDV (100 MG/ML) ONE ×2 (20:10→21:14)
[2024-11-21] MEDS ORDERED: Bupivacaine 0.5% HCl 5 MG/ML 30MLVIAL ONE (20:13)
[2024-11-21] MEDS ORDERED: ePHEDrine Sulfate 50 MG/ML 1ML Injection ONE (20:24)
[2024-11-21] MEDS ORDERED: FentaNYL Citrate 50 MCG/ML 2 ML Injection IV PRN (22:00)
[2024-11-21] MEDS ORDERED: OxyCODONE 5 mg/Acetamin 325 mg TABLET PO PRN (22:00)
[2024-11-21] MEDS ORDERED: Acetaminophen 500 MG Tab ONE (22:08)
[2024-11-21] MEDS ORDERED: Ipratropium/Albuterol SulF 2.5-0.5MG/3 ML Amp INH PRN (22:30)
[2024-11-21] MEDS ORDERED: GABA100 PO (23:09)
[2024-11-21] MEDS ORDERED: MELO7.5 PO (23:10)
--- NOTE | 2024-11-21 23:28 | NUR ---
BEGINNING SHIFT/SURGERY NG TO R NARES. VSS. SPO2 >90% ON 2L O2. PT LEFT FOR SURGERY APPROX 1939. SURGICAL INFECTION PREVENTION PACKET DONE PRIOR TO LEAVING TO OR. PT RETURNED TO APPROX [id number]. NG REMOVED IN SURGERY. STATES NO PAIN, N/V. ASKED FOR WATER. MIKE DRESSING TO MID ABD. CALL LIGHT IN REACH.
[2024-11-22 01:04] VITALS: BP 109/66
[2024-11-22 04:33] VITALS: BP 111/68
[2024-11-22 05:07] LABS: BASOPHILS ABSOLUTE AUTO 0.02 K/mm3 (0.00-0.23); BASOPHILS PERCENT AUTO 0 % (0-2); EOSINOPHILS ABSOLUTE AUTO 0.01 K/mm3 (0.00-0.68); EOSINOPHILS PERCENT AUTO 0 % (0-6); Hematocrit 45.5 % (37.0-53.0); Hemoglobin 15.6 g/dL (13.5-17.5); IMMATURE GRAN ABSOLUTE AUTO 0.03 K/mm3 (0.00-0.10); IMMATURE GRAN PERCENT AUTO 0 % (0-1); LYMPHOCYTES ABSOLUTE AUTO 0.34 K/mm3 (0.84-5.20); LYMPHOCYTES PERCENT AUTO 3 % (21-46); MONOCYTES ABSOLUTE AUTO 0.51 K/mm3 (0.16-1.47); MONOCYTES PERCENT AUTO 5 % (4-13); Mean Corpuscular HGB 34.1 pg (26.0-34.0); Mean Corpuscular HGB Conc 34.3 g/dL (31.5-36.5); Mean Corpuscular Volume 100 fL (80-100); Mean Platelet Volume 8.7 fL (9.1-12.4); NEUTROPHILS ABSOLUTE AUTO 10.42 K/mm3 (1.96-9.15); NEUTROPHILS PERCENT AUTO 92 % (41-73); Platelet Count 321 K/mm3 (150-400); RDW Coefficient Variation 17.2 % (11.7-14.2); RDW Standard Deviation 63.6 fL (35.1-46.3); Red Blood Cell Count 4.57 M/mm3 (4.30-5.90); White Blood Cell Count 11.33 K/mm3 (4.00-11.30)
[2024-11-22 05:45] LABS: Albumin, Blood 2.8 g/dL (3.4-5.0); Albumin/Globulin Ratio 0.7 (0.8-1.8); Bilirubin, Total 0.5 mg/dL (0.1-1.0); Bun/Creatinine Ratio 17.1 (12.0-20.0); Calcium, Blood 8.4 mg/dL (8.5-10.1); Creatinine, Blood 1.58 mg/dL (0.60-1.20); Globulin, Blood 3.9 g/dL (2.2-4.0); Potassium, Blood 3.2 mmol/L (3.5-5.5); Total Protein, Blood 6.7 g/dL (6.4-8.2)
--- NOTE | 2024-11-22 05:55 | NUR ---
SHIFT SUMMARY POD 1-OPEN HERNIA REPAIR W/MESH. MIDLINE MIKE IN PLACE, DRESSING C/D/I & COMPRESSED, NO SHADOWING OR DRAINAGE NOTED. ABD BINDER IN PLACE. REPORTS PASSING MIN FLATUS THIS AM. REPORTS ABD DISCOMFORT THIS AM & MEDICATED W/5MG PERCOCET. PT VOIDED THIS AM. TOLERATING SIPS OF WATER, DENIES N/V. VSS. SPO2 >90% ON 2L O2. CALL LIGHT IN REACH.
[2024-11-22 07:42] VITALS: BP 105/65
[2024-11-22] MEDS ORDERED: AcetaZOLAMIDE 250 MG Tab PO SCH (08:04)
[2024-11-22] MEDS ORDERED: NS 1,000 ML IV SCH (08:10)
[2024-11-22] MEDS ORDERED: Mometasone/Formoterol MDI 200/5 mcg 13 GM INH SCH (08:15)
[2024-11-22] MEDS ORDERED: Lisinopril 20 MG Tab PO SCH (09:00)
[2024-11-22] MEDS ORDERED: Rosuvastatin Calcium 10 MG Tab PO SCH (09:00)
[2024-11-22] MEDS ORDERED: Potassium Chloride 20 MEQ TabCR PO SCH (09:00)
[2024-11-22] MEDS ORDERED: HydroCHLOROthiazide 25 mg Tab PO SCH (09:00)
[2024-11-22] MEDS ORDERED: Gabapentin 100 MG Cap PO SCH (09:00)
[2024-11-22] MEDS ORDERED: Docusate Sodium 100 MG Cap PO SCH (09:00)
[2024-11-22] MEDS ORDERED: Aspirin 81 MG Chew PO SCH (09:00)
[2024-11-22 14:42] VITALS: BP 107/68
[2024-11-22] MEDS ORDERED: Enoxaparin 40 MG/0.4 ML SYR SC SCH (16:00)
--- NOTE | 2024-11-22 17:12 | NUR ---
SHIFT SUMMARY POD 1 OPEN HERNIA REPAIR WITH MESH PT PAIN TOLERABLE PER EMAR. PICCO DRESSING CDI, FOAM COMPRESSED, GREEN LIGHT FLASHING. TOLERATING DIET, NO NAUSEA. ADVANCING TO REGULAR. PT AMBULATING IN ROOM WITH FWW TO RESTROOM. REQUIRES 2-3L NASAL CANULA WHILE AWAKE. CONT BIOX ON. REPORTS PASSING FLATUS DURING SHIFT. CALLS APPROPRIATLY.
[2024-11-22 19:37] VITALS: BP 110/77
[2024-11-23 05:08] VITALS: BP 101/62
--- NOTE | 2024-11-23 05:08 | NUR ---
SHIFT SUMMARY POD 2-OPEN HERNIA REPAIR W.MESH. MIDLINE MIKE DRESSING C/D/I- NO SHADOWING OR DRAINAGE NOTED. PT DENIES N/V, TOLERATING REG DIET. ACTIVE BT. REPORTS PASSING FLATUS. REPORTS ABD PAIN, STATES PAIN IS MANAGED WELL W/2 TAB PERCOCET. VSS. SPO2 >90% ON 3L O2. BS DIM w/INSP & EXP WHEEZES, PT RECIEVING TX FROM RESPIRATORY CARE. CALL LIGHT IN REACH.
[2024-11-23 05:25] LABS: Base Excess Venous 21.6 mmol/L; Bicarbonate Venous 43.1 mmol/L (24.0-30.0); PCO2 Venous 50.5 mmHg (38-42)
[2024-11-23 05:26] LABS: pH Blood Venous 7.55 (7.34-7.37)
[2024-11-23] MEDS ORDERED: Omeprazole 20 MG CapCR PO SCH (06:00)
[2024-11-23 06:09] LABS: BASOPHILS ABSOLUTE AUTO 0.01 K/mm3 (0.00-0.23); BASOPHILS PERCENT AUTO 0 % (0-2); EOSINOPHILS ABSOLUTE AUTO 0.05 K/mm3 (0.00-0.68); EOSINOPHILS PERCENT AUTO 1 % (0-6); Hematocrit 42.8 % (37.0-53.0); Hemoglobin 14.9 g/dL (13.5-17.5); IMMATURE GRAN ABSOLUTE AUTO 0.02 K/mm3 (0.00-0.10); IMMATURE GRAN PERCENT AUTO 0 % (0-1); LYMPHOCYTES ABSOLUTE AUTO 1.58 K/mm3 (0.84-5.20); LYMPHOCYTES PERCENT AUTO 18 % (21-46); MONOCYTES ABSOLUTE AUTO 0.93 K/mm3 (0.16-1.47); MONOCYTES PERCENT AUTO 10 % (4-13); Mean Corpuscular HGB 33.9 pg (26.0-34.0); Mean Corpuscular HGB Conc 34.8 g/dL (31.5-36.5); Mean Corpuscular Volume 97 fL (80-100); Mean Platelet Volume 9.3 fL (9.1-12.4); NEUTROPHILS ABSOLUTE AUTO 6.42 K/mm3 (1.96-9.15); NEUTROPHILS PERCENT AUTO 71 % (41-73); Platelet Count 286 K/mm3 (150-400); RDW Coefficient Variation 16.7 % (11.7-14.2); White Blood Cell Count 9.01 K/mm3 (4.00-11.30)
[2024-11-23 06:39] LABS: Albumin, Blood 2.7 g/dL (3.4-5.0); Albumin/Globulin Ratio 0.8 (0.8-1.8); Bilirubin, Total 0.6 mg/dL (0.1-1.0); Bun/Creatinine Ratio 27.3 (12.0-20.0); Calcium, Blood 8.5 mg/dL (8.5-10.1); Creatinine, Blood 0.92 mg/dL (0.60-1.20); Globulin, Blood 3.5 g/dL (2.2-4.0); Potassium, Blood 2.6 mmol/L (3.5-5.5); Total Protein, Blood 6.2 g/dL (6.4-8.2)
[2024-11-23] MEDS ORDERED: Potassium Chloride 40 MEQ in NS 250 ML IV ONE (07:20)
[2024-11-23] MEDS ORDERED: Magnesium Sulf 2 GM/Water 50ML 50 ML IV ONE (07:25)
[2024-11-23 07:33] VITALS: BP 125/82
--- NOTE | 2024-11-23 09:01 | NUR ---
MAGNESIUM AND NS RESTARTED AT THIS TIME. IV HAD STARTED LEAKING.
[2024-11-23] MEDS ORDERED: Potassium Chloride 20 MEQ in NS 90 ML IV ONE (12:00)
[2024-11-23 12:29] LABS: Bun/Creatinine Ratio 22.9 (12.0-20.0); Calcium, Blood 8.8 mg/dL (8.5-10.1); Creatinine, Blood 0.92 mg/dL (0.60-1.20); Potassium, Blood 2.8 mmol/L (3.5-5.5)
[2024-11-23 14:51] VITALS: BP 121/75
[2024-11-23 16:09] LABS: Calcium, Blood 8.5 mg/dL (8.5-10.1); Creatinine, Blood 0.95 mg/dL (0.60-1.20); Potassium, Blood 3.3 mmol/L (3.5-5.5)
--- NOTE | 2024-11-23 18:29 | NUR ---
SHIFT SUMMARY POD 2 OPEN HERNIA REPAIR WITH MESH. PICCO DRESSING REMAINS CDI. PT UP AND AMBULATING IN ROOM WITH FWW. PAIN CONTROLLED WELL PER EMAR. CONTINUES TO PASS FLATUS. TOLERATING PO WELL, NO NAUSEA. PT BREATHING EASIER, REPORTS FEELING BETTER. ABLE TO STAY ON ROOM AIR WHILE UP AND IN CHAIR. 2L WHILE LAYING DOWN.
[2024-11-23] MEDS ORDERED: Potassium Chloride 20 MEQ TabCR PO SCH (19:00)
[2024-11-23 20:27] VITALS: BP 104/60
[2024-11-23 20:39] LABS: Bun/Creatinine Ratio 21.4 (12.0-20.0); Calcium, Blood 8.6 mg/dL (8.5-10.1); Creatinine, Blood 0.93 mg/dL (0.60-1.20); Potassium, Blood 3.3 mmol/L (3.5-5.5)
[2024-11-23 21:46] LABS: Bun/Creatinine Ratio 19.3 (12.0-20.0); Calcium, Blood 8.5 mg/dL (8.5-10.1); Creatinine, Blood 0.99 mg/dL (0.60-1.20); Potassium, Blood 3.4 mmol/L (3.5-5.5)
[2024-11-24 04:19] VITALS: BP 107/76
--- NOTE | 2024-11-24 05:31 | NUR ---
SHIFT SUMMARY POD 3 OPEN HERNIA REPAIR c MESH. NO ACUTE CHANGES OVERNIGHT. VSS. TOLERATING REG DIET. VOIDING. IV FLUIDS INFUSING PER EMAR. MIKE DRESSING TO MIDLINE ABD C/D/I c DIME-SIZED AMOUNT DRAINAGE AT BOTTOM OF DRESSING. PT REPORTS PASSING FLATUS, NO BM. PT REPORTS PAIN TOLERABLE, MEDICATED PER EMAR. ENC AMB c FWW. ANTICIPATED D/C HOME. CALL LIGHT IN REACH, BED IN LOWEST POSITION, WILL REPORT TO DAY RN.
[2024-11-24 05:48] LABS: BASOPHILS ABSOLUTE AUTO 0.04 K/mm3 (0.00-0.23); BASOPHILS PERCENT AUTO 1 % (0-2); EOSINOPHILS ABSOLUTE AUTO 0.08 K/mm3 (0.00-0.68); EOSINOPHILS PERCENT AUTO 1 % (0-6); Hematocrit 40.6 % (37.0-53.0); Hemoglobin 13.7 g/dL (13.5-17.5); IMMATURE GRAN ABSOLUTE AUTO 0.05 K/mm3 (0.00-0.10); IMMATURE GRAN PERCENT AUTO 1 % (0-1); LYMPHOCYTES PERCENT AUTO 18 % (21-46); MONOCYTES ABSOLUTE AUTO 0.76 K/mm3 (0.16-1.47); MONOCYTES PERCENT AUTO 10 % (4-13); Mean Corpuscular HGB 33.7 pg (26.0-34.0); Mean Corpuscular HGB Conc 33.7 g/dL (31.5-36.5); Mean Corpuscular Volume 100 fL (80-100); Mean Platelet Volume 9.5 fL (9.1-12.4); NEUTROPHILS PERCENT AUTO 70 % (41-73); Platelet Count 276 K/mm3 (150-400); RDW Coefficient Variation 16.3 % (11.7-14.2); RDW Standard Deviation 59.8 fL (35.1-46.3); Red Blood Cell Count 4.06 M/mm3 (4.30-5.90); White Blood Cell Count 7.43 K/mm3 (4.00-11.30)
[2024-11-24 06:09] LABS: Albumin, Blood 2.6 g/dL (3.4-5.0); Albumin/Globulin Ratio 0.8 (0.8-1.8); Bilirubin, Total 0.6 mg/dL (0.1-1.0); Bun/Creatinine Ratio 19.4 (12.0-20.0); Calcium, Blood 8.3 mg/dL (8.5-10.1); Creatinine, Blood 0.88 mg/dL (0.60-1.20); Globulin, Blood 3.3 g/dL (2.2-4.0); Total Protein, Blood 5.9 g/dL (6.4-8.2)
[2024-11-24 07:37] VITALS: BP 103/73
[2024-11-24] MEDS ORDERED: Potassium Chloride 20 MEQ/15 ML UDC PO ONE (08:10)
[2024-11-24] MEDS ORDERED: Potassium Chloride 20 MEQ/15 ML UDC PO SCH (09:00)
[2024-11-24] MEDS ORDERED: ACET325 PO (11:36)
[2024-11-24] MEDS ORDERED: Percocet 5-3251 EACH PO (11:37)
[2024-11-24 11:43] VITALS: BP 102/64
--- NOTE | 2024-11-24 11:59 | NUR ---
DISCHARGED REVIEWED DC INSTRUCTIONS W/PT; VERBALIZED UNDERSTANDING. IV DC'D. VSS. PAIN CONTROLLED WITH 1 TAB PERCOCET PER ORDERS. TOLERATING DIET. VOIDING. PT LEFT ROOM IN WC W/POSSESSIONS AND DC PAPERWORK IN HAND. SEEING MOTHER, WHO IS A PT, IN RM 218 BEFORE LEAVING UNIT TO MEET RIDE WAITING OUTSIDE.
== END 2024-11-24 12:05 | disposition home or self-care (01) | DRG 354 ==
LOC: ER 12:13 → ERHOLD 16:42 → SURS 16:42 → ER 18:45 → SURS 11-24 12:05
PROVIDERS: Physician Assistant; Surgery; ADMIT Internal Medicine
PROC: 0DH67UZ Insertion of Feeding Device into Stomach, Via Natural or Artificial Opening (ICD-10-PCS; 2024-11-21)
PROC: 0WUF0JZ Supplement Abdominal Wall with Synthetic Substitute, Open Approach (ICD-10-PCS; principal; 2024-11-21 19:00)
DX: K43.0 Incisional hernia with obstruction, without gangrene (principal); E87.3 Alkalosis; G61.0 Guillain-Barre syndrome; N17.9 Acute kidney failure, unspecified; Z68.42 Body mass index [BMI] 45.0-49.9, adult; E87.6 Hypokalemia; I10 Essential (primary) hypertension; K21.9 Gastro-esophageal reflux disease without esophagitis; E66.9 Obesity, unspecified; J44.9 Chronic obstructive pulmonary disease, unspecified; Z98.890 Other specified postprocedural states; F10.90 Alcohol use, unspecified, uncomplicated; F17.210 Nicotine dependence, cigarettes, uncomplicated; Z88.0 Allergy status to penicillin; Z79.82 Long term (current) use of aspirin; Z79.899 Other long term (current) drug therapy
CPT/HCPCS: 36415; 71045; 74177; 80048; 80053; 82803; 82947; 83605; 83690; 83735; 84100; 85025; 87040; 88304; 93005; 93010; 94640; 94664; 94760; 94762; 96361; 96374-59; 96375; 99285-25; A9270; C1781; J1100; J1171; J1650; J1885; J2405; J2704; J3010; J3475; J3480; J7030; J7050; J7120; Q9967

== ENCOUNTER 2024-12-15 13:09 | Emergency (ER) | payer OTHER ==
[~2024-12-15] VITALS: Ht 185.4 cm; Wt 163.3 kg
[~2024-12-15 13:09] MED LIST changes: +ACET325 PO; +GABA100 PO; +Percocet 5-3251 EACH PO
[2024-12-15 14:11] VITALS: BP 120/77
[2024-12-15 14:26] LABS: BASOPHILS ABSOLUTE AUTO 0.05 K/mm3 (0.00-0.23); BASOPHILS PERCENT AUTO 1 % (0-2); EOSINOPHILS ABSOLUTE AUTO 0.05 K/mm3 (0.00-0.68); EOSINOPHILS PERCENT AUTO 1 % (0-6); Hematocrit 43.2 % (37.0-53.0); Hemoglobin 15.1 g/dL (13.5-17.5); IMMATURE GRAN ABSOLUTE AUTO 0.02 K/mm3 (0.00-0.10); IMMATURE GRAN PERCENT AUTO 0 % (0-1); LYMPHOCYTES ABSOLUTE AUTO 1.98 K/mm3 (0.84-5.20); LYMPHOCYTES PERCENT AUTO 20 % (21-46); MONOCYTES PERCENT AUTO 7 % (4-13); Mean Corpuscular HGB 34.7 pg (26.0-34.0); Mean Corpuscular Volume 99 fL (80-100); Mean Platelet Volume 8.3 fL (9.1-12.4); NEUTROPHILS ABSOLUTE AUTO 7.08 K/mm3 (1.96-9.15); NEUTROPHILS PERCENT AUTO 72 % (41-73); Platelet Count 311 K/mm3 (150-400); RDW Coefficient Variation 15.4 % (11.7-14.2); RDW Standard Deviation 56.4 fL (35.1-46.3); Red Blood Cell Count 4.35 M/mm3 (4.30-5.90); White Blood Cell Count 9.88 K/mm3 (4.00-11.30)
[2024-12-15 15:12] LABS: Albumin, Blood 2.7 g/dL (3.4-5.0); Albumin/Globulin Ratio 0.6 (0.8-1.8); Bilirubin, Total 0.6 mg/dL (0.1-1.0); Bun/Creatinine Ratio 9.9 (12.0-20.0); Creatinine, Blood 0.81 mg/dL (0.60-1.20); Globulin, Blood 4.2 g/dL (2.2-4.0); Potassium, Blood 4.7 mmol/L (3.5-5.5); Total Protein, Blood 6.9 g/dL (6.4-8.2)
[2024-12-15] MEDS ORDERED: Bactrim Ds Tab1 EACH PO (16:04)
[2024-12-15] MEDS ORDERED: Trimethoprim/Sulfamethoxazole DS Tab PO ONE (16:05)
== END 2024-12-15 16:09 | disposition home or self-care (01) ==
LOC: ER 13:09
PROVIDERS: Student in an Organized Health Care Education/Training Program
DX: T81.49XA Infection following a procedure, other surgical site, initial encounter (principal); L02.211 Cutaneous abscess of abdominal wall; Y83.8 Other surgical procedures as the cause of abnormal reaction of the patient, or of later complication, without mention of misadventure at the time of the procedure; I10 Essential (primary) hypertension; F17.200 Nicotine dependence, unspecified, uncomplicated; Z88.0 Allergy status to penicillin; Z79.82 Long term (current) use of aspirin; Z79.899 Other long term (current) drug therapy
CPT/HCPCS: 74177; 80053; 85025; 99284-25; A9270; Q9967

== ENCOUNTER → 2024-12-18 | Outpatient (CLI) | payer OTHER ==
[~2024-12-18] MED LIST changes: +Bactrim Ds Tab1 EACH PO
== END ==
LOC: LAB 10:32 → LAB SHORT 10:32
DX: L02.219 Cutaneous abscess of trunk, unspecified (principal)
CPT/HCPCS: 87070; 87075; 87076; 87185; 87205

== ENCOUNTER 2025-06-24 01:33 | Observation (INO) | payer OTHER ==
[~2025-06-24] VITALS: Ht 185.4 cm; Wt 160.6 kg
[2025-06-24] MEDS ORDERED: Morphine Sulfate 4 MG/1 ML Injection IV ONE (02:10)
[2025-06-24] MEDS ORDERED: Ondansetron HCl 2 MG / ML 2ML Vial IV ONE (03:30)
[2025-06-24] MEDS ORDERED: Propofol 10mg/ml 20 ml Vial (Procedural) IV SCH ×2 (07:15→11:15)
[2025-06-24] MEDS ORDERED: NS 1,000 ML IV SCH ×2 (07:15→11:25)
[2025-06-24] MEDS ORDERED: PERCOCET 10-321 EA13 PO (08:54)
[2025-06-24] MEDS ORDERED: IBUP600 PO (08:54)
[2025-06-24] MEDS ORDERED: ACET500 PO (08:54)
[2025-06-24 12:56] LABS: BASOPHILS ABSOLUTE AUTO 0.07 K/mm3 (0.00-0.23); BASOPHILS PERCENT AUTO 1 % (0-2); EOSINOPHILS ABSOLUTE AUTO 0.04 K/mm3 (0.00-0.68); EOSINOPHILS PERCENT AUTO 1 % (0-6); Hematocrit 41.4 % (37.0-53.0); Hemoglobin 13.6 g/dL (13.5-17.5); IMMATURE GRAN ABSOLUTE AUTO 0.02 K/mm3 (0.00-0.10); IMMATURE GRAN PERCENT AUTO 0 % (0-1); LYMPHOCYTES ABSOLUTE AUTO 1.65 K/mm3 (0.84-5.20); LYMPHOCYTES PERCENT AUTO 19 % (21-46); MONOCYTES ABSOLUTE AUTO 1.34 K/mm3 (0.16-1.47); MONOCYTES PERCENT AUTO 15 % (4-13); Mean Corpuscular HGB Conc 32.9 g/dL (31.5-36.5); Mean Corpuscular Volume 102 fL (80-100); NEUTROPHILS ABSOLUTE AUTO 5.64 K/mm3 (1.96-9.15); NEUTROPHILS PERCENT AUTO 64 % (41-73); NRBC ABSOLUTE 0.00 K/mm3 (0.00-0.02); NRBC Auto 0.0 /100 WBC (0.0-0.2); Platelet Count 446 K/mm3 (150-400); RDW Coefficient Variation 13.7 % (11.7-14.2); RDW Standard Deviation 51.9 fL (35.1-46.3)
[2025-06-24 13:11] LABS: Alanine Aminotransfer (ALT/SGP 28.0 U/L (12-78); Albumin, Blood 3.0 g/dL (3.4-5.0); Albumin/Globulin Ratio 0.7 (0.8-1.8); Anion Gap 4.0 mmol/L (3-11); Aspartate Aminotrans (AST/SGOT 29.0 U/L (12-37); Bilirubin, Total 0.8 mg/dL (0.1-1.0); Blood Urea Nitrogen 6.0 mg/dL (8-24); CO2, Blood 34.0 mmol/L (21-32); Calcium, Blood 8.6 mg/dL (8.5-10.1); Chloride, Blood 100.0 mmol/L (98-108); Creatinine, Blood 0.59 mg/dL (0.60-1.20); Globulin, Blood 4.1 g/dL (2.2-4.0); Glucose, Blood 95.0 mg/dL (70-99); Potassium, Blood 3.8 mmol/L (3.5-5.5); Sodium, Blood 134.0 mmol/L (136-145); Total Protein, Blood 7.1 g/dL (6.4-8.2)
[2025-06-24] MEDS ORDERED: Polyethylene Glycol 3350 17 gm PO PRN (15:20)
[2025-06-24] MEDS ORDERED: Ipratropium/Albuterol SulF 2.5-0.5MG/3 ML Amp INH SCH (15:20)
[2025-06-24 16:06] VITALS: BP 122/78
--- NOTE | 2025-06-24 18:20 | NUR ---
SHIFT SUMMARY PATIENT NEW ADMIT FOR L ANKLE FX. NPO AFTER MIDNIGHT. FOR SURGERY IN AM. PATIENT IS AOX4, GOOD HISTORIAN. MED REC COMPLETE. MEDICATED FOR PAIN PRN. TOLERATING WELL. VSS. SPLINT TO LLE C/D/I. CALL LIGHT IN REACH
[2025-06-24 19:28] VITALS: BP 138/82
[2025-06-24] MEDS ORDERED: Lactobacil 2-S.Thermo-Bifido 1 1 Cap PO SCH (21:00)
[2025-06-25] VITALS (17 sets, daily range): BP systolic 106–140; BP diastolic 64–88
--- NOTE | 2025-06-25 04:32 | NUR ---
NOC SUMMARY- PT PAIN MANAGED WELL. PT CHG BATH PERFORMED. PT HAS BEEN NPO SINCE [place]. PT RESTING COMFORTABLY. CALL LIGHT IN REACH.
[2025-06-25 04:52] LABS: BASOPHILS ABSOLUTE AUTO 0.05 K/mm3 (0.00-0.23); BASOPHILS PERCENT AUTO 1 % (0-2); EOSINOPHILS ABSOLUTE AUTO 0.02 K/mm3 (0.00-0.68); EOSINOPHILS PERCENT AUTO 0 % (0-6); Hematocrit 37.3 % (37.0-53.0); Hemoglobin 12.3 g/dL (13.5-17.5); IMMATURE GRAN ABSOLUTE AUTO 0.01 K/mm3 (0.00-0.10); IMMATURE GRAN PERCENT AUTO 0 % (0-1); LYMPHOCYTES ABSOLUTE AUTO 1.48 K/mm3 (0.84-5.20); LYMPHOCYTES PERCENT AUTO 21 % (21-46); MONOCYTES ABSOLUTE AUTO 1.32 K/mm3 (0.16-1.47); MONOCYTES PERCENT AUTO 19 % (4-13); Mean Corpuscular HGB Conc 33.0 g/dL (31.5-36.5); Mean Corpuscular Volume 102 fL (80-100); NEUTROPHILS ABSOLUTE AUTO 4.06 K/mm3 (1.96-9.15); NEUTROPHILS PERCENT AUTO 59 % (41-73); NRBC ABSOLUTE 0.00 K/mm3 (0.00-0.02); NRBC Auto 0.0 /100 WBC (0.0-0.2); Platelet Count 354 K/mm3 (150-400); RDW Coefficient Variation 13.9 % (11.7-14.2); RDW Standard Deviation 52.2 fL (35.1-46.3)
[2025-06-25 05:12] LABS: Alanine Aminotransfer (ALT/SGP 19.0 U/L (12-78); Albumin, Blood 2.5 g/dL (3.4-5.0); Albumin/Globulin Ratio 0.7 (0.8-1.8); Anion Gap 6.0 mmol/L (3-11); Aspartate Aminotrans (AST/SGOT 19.0 U/L (12-37); Bilirubin, Total 1.0 mg/dL (0.1-1.0); Blood Urea Nitrogen 9.0 mg/dL (8-24); CO2, Blood 32.0 mmol/L (21-32); Calcium, Blood 8.1 mg/dL (8.5-10.1); Chloride, Blood 100.0 mmol/L (98-108); Creatinine, Blood 0.57 mg/dL (0.60-1.20); Globulin, Blood 3.7 g/dL (2.2-4.0); Glucose, Blood 101.0 mg/dL (70-99); Potassium, Blood 3.5 mmol/L (3.5-5.5); Sodium, Blood 134.0 mmol/L (136-145); Total Protein, Blood 6.2 g/dL (6.4-8.2)
[2025-06-25] MEDS ORDERED: NS 1,000 ML IV ONE (10:00)
[2025-06-25] MEDS ORDERED: Tranexamic Acid 100 ML IV SCH (10:10)
[2025-06-25] MEDS ORDERED: CeFAZolin Sodium 3,000 MG in NS 100 ML IV SCH (10:10)
--- NOTE | 2025-06-25 11:31 | NUR ---
PT TO PROCEDURE AT THIS TIME.
--- NOTE | 2025-06-25 11:58 | NUR ---
PT TRANSPORTED TO [facility]. AGREES WITH PLANNED SURGERY. LUNG SOUNDS CLEAR. History, Chart, Medications and Allergies reviewed before start of procedure.
[2025-06-25] MEDS ORDERED: Bupivacaine HCl 0.25% 30 ML Injection ONE (12:16)
[2025-06-25] MEDS ORDERED: Bupivacaine 0.5% HCl 5 MG/ML 30MLVIAL ONE (12:16)
[2025-06-25] MEDS ORDERED: FentaNYL Citrate 50 MCG/ML 2 ML Injection ONE (12:28)
[2025-06-25] MEDS ORDERED: Midazolam HCl 1MG / ML 2ML Vial ONE (12:29)
[2025-06-25] MEDS ORDERED: Etomidate 2MG / ML 10ML Vial ONE (13:28)
[2025-06-25] MEDS ORDERED: HYDROmorphone HCl/Pf 1MG SYR IV PRN ×2 (14:15→14:20)
[2025-06-25] MEDS ORDERED: FentaNYL Citrate 50 MCG/ML 2 ML Injection IV PRN ×2 (14:15)
[2025-06-25] MEDS ORDERED: HydrALAZINE HCl 20 MG / ML 1ML Vial IV PRN (14:15)
[2025-06-25] MEDS ORDERED: Albuterol 2.5 MG/3 ML VIAL INH PRN (14:15)
[2025-06-25] MEDS ORDERED: Ondansetron HCl 2 MG / ML 2ML Vial IV PRN (14:15)
[2025-06-25] MEDS ORDERED: Sugammadex Sodium 200 MG/2ML SDV (100 MG/ML) ONE (14:21)
[2025-06-25] MEDS ORDERED: Dexamethasone Sod Phos 10 MG/ML 1ML VIAL ONE (14:21)
[2025-06-25] MEDS ORDERED: Rocuronium Bromide 10 MG/ML 5ML Injection IV ONE (14:21)
[2025-06-25] MEDS ORDERED: Ondansetron HCl 2 MG / ML 2ML Vial ONE (14:21)
[2025-06-25] MEDS ORDERED: Albuterol 2.5 MG/3 ML VIAL ONE (14:40)
--- NOTE | 2025-06-25 15:28 | NUR ---
ARRIVAL TO UNIT PT ARRIVED TO UNIT FROM PACU ON GURNEY, SLID TO BED VIA SLIDE SHEET. EXTERNAL FIXATION PRESENT TO L ANKLE. DRESSING CURRENTLY CLEAN AND INTACT. ABLE TO WIGGLE TOES. CAP REFILL <3 AND TOES WARM TO TOUCH. DENIES FEELING IN FOOT. REPORTS PAIN TOLERABLE AT THIS TIME BUT REQUESTING ORAL MEDICATION TO KEEP PAIN DOWN. TOLERATING PO INTAKE. NO NAUSEA. REMAINS ON 3L NASAL CANULA SATS AT 93%. ENCOURAGING DEEP BREATHING.
[2025-06-26 03:41] VITALS: BP 135/81
[2025-06-26 05:22] LABS: BASOPHILS ABSOLUTE AUTO 0.01 K/mm3 (0.00-0.23); BASOPHILS PERCENT AUTO 0 % (0-2); EOSINOPHILS ABSOLUTE AUTO 0.00 K/mm3 (0.00-0.68); EOSINOPHILS PERCENT AUTO 0 % (0-6); Hematocrit 40.3 % (37.0-53.0); Hemoglobin 13.4 g/dL (13.5-17.5); IMMATURE GRAN ABSOLUTE AUTO 0.03 K/mm3 (0.00-0.10); IMMATURE GRAN PERCENT AUTO 0 % (0-1); LYMPHOCYTES ABSOLUTE AUTO 0.76 K/mm3 (0.84-5.20); LYMPHOCYTES PERCENT AUTO 6 % (21-46); MONOCYTES ABSOLUTE AUTO 1.09 K/mm3 (0.16-1.47); MONOCYTES PERCENT AUTO 9 % (4-13); Mean Corpuscular HGB Conc 33.3 g/dL (31.5-36.5); Mean Corpuscular Volume 101 fL (80-100); NEUTROPHILS ABSOLUTE AUTO 10.36 K/mm3 (1.96-9.15); NEUTROPHILS PERCENT AUTO 85 % (41-73); NRBC ABSOLUTE 0.00 K/mm3 (0.00-0.02); NRBC Auto 0.0 /100 WBC (0.0-0.2); Platelet Count 373 K/mm3 (150-400); RDW Coefficient Variation 13.2 % (11.7-14.2); RDW Standard Deviation 49.3 fL (35.1-46.3)
--- NOTE | 2025-06-26 05:44 | NUR ---
NOC SUMMARY- PT PAIN MANAGED WELL. PT VOIDING AND TOLERATING PO. PT HAS RESTED COMFORTABLY. PT HAS N/T BLE DUE TO NEUROPATHY. PT DRESSING IS C/D/I. PT CIWA HAS BEEN 0. PT REPORTS NEVER HAVINGISSUE WITH ETOH WITHDRAWL. NO NEW ISSUES. CALL LIGHT IN REACH.
[2025-06-26 05:48] LABS: Alanine Aminotransfer (ALT/SGP 19.0 U/L (12-78); Albumin, Blood 2.6 g/dL (3.4-5.0); Albumin/Globulin Ratio 0.6 (0.8-1.8); Anion Gap 8.0 mmol/L (3-11); Aspartate Aminotrans (AST/SGOT 13.0 U/L (12-37); Bilirubin, Total 0.7 mg/dL (0.1-1.0); Blood Urea Nitrogen 9.0 mg/dL (8-24); CO2, Blood 29.0 mmol/L (21-32); Calcium, Blood 8.8 mg/dL (8.5-10.1); Chloride, Blood 99.0 mmol/L (98-108); Creatinine, Blood 0.48 mg/dL (0.60-1.20); Globulin, Blood 4.4 g/dL (2.2-4.0); Glucose, Blood 185.0 mg/dL (70-99); Potassium, Blood 4.1 mmol/L (3.5-5.5); Sodium, Blood 132.0 mmol/L (136-145); Total Protein, Blood 7.0 g/dL (6.4-8.2)
[2025-06-26] MEDS ORDERED: Insulin Human Lispro 100 Units/ML 3ML Syringe SC SCH (07:30)
[2025-06-26 07:40] VITALS: BP 129/79
[2025-06-26 08:17] LABS: Source, Urine Clean Catch
[2025-06-26 08:21] LABS: Bilirubin, Urine Neg (Neg); Color, Urine Yellow (P-Yellow); Glucose Qualitative, Urine Neg (Neg); Ketones, Urine Neg (Neg); Leukocyte Esterase, Urine 2+ (Neg); Protein, Urine Neg (Neg); Specific Gravity, Urine 1.005 (1.003-1.022); Urobilinogen, Urine NORM (Normal)
[2025-06-26 08:32] LABS: Red Blood Cells, Urine Not Seen /hpf (0-2)
[2025-06-26 09:00] VITALS: BP 118/74
[2025-06-26 15:39] VITALS: BP 133/73
--- NOTE | 2025-06-26 16:11 | NUR ---
SHIFT SUMMARY PT DOING WELL TODAY. EXTERNAL FIXATION + CESAR WRAP TO LEFT ANKLE REMAINS CDI. ELEVATED ON PILLOWS. PT ABLE TO INDEP MOBILIZE IN THE BED AND DANGLE AND USE THE URINAL TO VOID. NWB TO LLE. ROXICODONE FOR PAIN CONTROL. EFRA REG DIET. IVF INFUSING PER ORDERS. PHYSICAL THERAPY EVAL OCCURING NOW. PT USES CALL LIGHT APPROPRIATELY.
[2025-06-26 19:10] VITALS: BP 140/65
--- NOTE | 2025-06-27 04:38 | NUR ---
SHIFT SUMMARY AOX4. VSS. POD 2-EXTERNAL FIXATION TO L ANKLE. CESAR WRAP & KERLEX NOTED W/NO DRAINAGE. NON-WT BEARING TO L FOOT. REPORTS CHRONIC N/T TO BLE. ABLE TO WIGGLE TOES ON L FOOT. CAP REFILL <3 SEC. REPORTS 6/10 PAIN TO L ANKLE, STATES TYLENOL & 5MG OXYCODONE HELP W/PAIN. DENIES N/V OR DYSPNEA. SPO2 DESATS TO 80'S WHEN ON RA & PT FALLS ASLEEP 1.5L O2 PLACED ON & SPO2 HAS BEEN >95%. CIWA SCORE 3 FOR MIN TREMORS W/ARMS EXTENDED. IND W/URINAL @BEDSIDE, HAS VOIDED MULTx. CALL LIGHT IN REACH & PT ABLE TO MAKE NEEDS KNOWN.
[2025-06-27 04:44] VITALS: BP 130/82
[2025-06-27 04:59] LABS: BASOPHILS ABSOLUTE AUTO 0.04 K/mm3 (0.00-0.23); BASOPHILS PERCENT AUTO 0 % (0-2); EOSINOPHILS ABSOLUTE AUTO 0.06 K/mm3 (0.00-0.68); EOSINOPHILS PERCENT AUTO 1 % (0-6); Hematocrit 36.1 % (37.0-53.0); Hemoglobin 11.6 g/dL (13.5-17.5); IMMATURE GRAN ABSOLUTE AUTO 0.02 K/mm3 (0.00-0.10); IMMATURE GRAN PERCENT AUTO 0 % (0-1); LYMPHOCYTES ABSOLUTE AUTO 2.16 K/mm3 (0.84-5.20); LYMPHOCYTES PERCENT AUTO 24 % (21-46); MONOCYTES ABSOLUTE AUTO 0.93 K/mm3 (0.16-1.47); MONOCYTES PERCENT AUTO 10 % (4-13); Mean Corpuscular HGB Conc 32.1 g/dL (31.5-36.5); Mean Corpuscular Volume 103 fL (80-100); NEUTROPHILS ABSOLUTE AUTO 5.91 K/mm3 (1.96-9.15); NEUTROPHILS PERCENT AUTO 65 % (41-73); NRBC ABSOLUTE 0.00 K/mm3 (0.00-0.02); NRBC Auto 0.0 /100 WBC (0.0-0.2); Platelet Count 358 K/mm3 (150-400); RDW Coefficient Variation 13.6 % (11.7-14.2); RDW Standard Deviation 51.5 fL (35.1-46.3)
[2025-06-27 05:33] LABS: Alanine Aminotransfer (ALT/SGP 15.0 U/L (12-78); Albumin, Blood 2.4 g/dL (3.4-5.0); Albumin/Globulin Ratio 0.7 (0.8-1.8); Anion Gap 7.0 mmol/L (3-11); Aspartate Aminotrans (AST/SGOT 17.0 U/L (12-37); Bilirubin, Total 0.6 mg/dL (0.1-1.0); Blood Urea Nitrogen 8.0 mg/dL (8-24); CO2, Blood 31.0 mmol/L (21-32); Calcium, Blood 8.6 mg/dL (8.5-10.1); Chloride, Blood 102.0 mmol/L (98-108); Creatinine, Blood 0.55 mg/dL (0.60-1.20); Globulin, Blood 3.6 g/dL (2.2-4.0); Glucose, Blood 119.0 mg/dL (70-99); Potassium, Blood 3.9 mmol/L (3.5-5.5); Sodium, Blood 136.0 mmol/L (136-145); Total Protein, Blood 6.0 g/dL (6.4-8.2)
[2025-06-27 07:02] VITALS: BP 130/95
[2025-06-27 14:35] VITALS: BP 120/68
--- NOTE | 2025-06-27 17:08 | NUR ---
SUMMARY NO ACUTE CHANGES T/O SHIFT. WASHED DRIED BLOOD FROM R FOOT THIS AM. PT WORKED WITH THERAPY. LLE FLOATED ON PILLOW. DRESSING CDI. MEDICATED PER ORDEERS DURING SHIFT FOR PAIN. PT UNABLE TO TRANSFER TO BSC. ATTEMPTED TO USE BEDPAN FOR BM, PASSED FLATUS AND HAD SMEAR DURING DAY BUT NO FORMED BM. PT PLEASANT AND COOPERATIVE. CALL LIGHT IN REACH.
[2025-06-27 19:13] VITALS: BP 144/65
[2025-06-28 04:22] VITALS: BP 120/77
--- NOTE | 2025-06-28 05:35 | NUR ---
SHIFT SUMMARY AOX4. VSS. DENIES N/V OR DYSPNEA. SPO2 DROPS TO 85-88% ON RA WHEN PT SLEEPS, PLACED ON 1.5L O2 & SPO2 MAINTAINS >90%. POD 3-EXTERNAL FIXATION TO LLE FX. CESAR WRAP & GAUZE NOTED C/D/I, NO SHADOWING OR DRAINAGE NOTED. PT REPORTS 6/10 PAIN TO LLE, STATES TYLENOL & 5MG PO OXYCODONE HELP W/PAIN. HAS VOIDED MULTx W/URINAL. PENDING SNF DC, CALL LIGHT IN REACH & PT ABLE TO MAKE NEEDS KNOWN.
[2025-06-28 07:05] VITALS: BP 125/83
[2025-06-28 09:40] LABS: BASOPHILS ABSOLUTE AUTO 0.06 K/mm3 (0.00-0.23); BASOPHILS PERCENT AUTO 1 % (0-2); EOSINOPHILS ABSOLUTE AUTO 0.11 K/mm3 (0.00-0.68); EOSINOPHILS PERCENT AUTO 1 % (0-6); Hematocrit 38.1 % (37.0-53.0); Hemoglobin 12.4 g/dL (13.5-17.5); IMMATURE GRAN ABSOLUTE AUTO 0.02 K/mm3 (0.00-0.10); IMMATURE GRAN PERCENT AUTO 0 % (0-1); LYMPHOCYTES ABSOLUTE AUTO 1.68 K/mm3 (0.84-5.20); LYMPHOCYTES PERCENT AUTO 21 % (21-46); MONOCYTES ABSOLUTE AUTO 0.88 K/mm3 (0.16-1.47); MONOCYTES PERCENT AUTO 11 % (4-13); Mean Corpuscular HGB Conc 32.5 g/dL (31.5-36.5); Mean Corpuscular Volume 103 fL (80-100); NEUTROPHILS ABSOLUTE AUTO 5.27 K/mm3 (1.96-9.15); NEUTROPHILS PERCENT AUTO 66 % (41-73); NRBC ABSOLUTE 0.00 K/mm3 (0.00-0.02); NRBC Auto 0.0 /100 WBC (0.0-0.2); Platelet Count 378 K/mm3 (150-400); RDW Coefficient Variation 13.8 % (11.7-14.2); RDW Standard Deviation 52.1 fL (35.1-46.3)
[2025-06-28 10:02] LABS: Alanine Aminotransfer (ALT/SGP 15.0 U/L (12-78); Albumin, Blood 2.7 g/dL (3.4-5.0); Albumin/Globulin Ratio 0.7 (0.8-1.8); Anion Gap 4.0 mmol/L (3-11); Aspartate Aminotrans (AST/SGOT 16.0 U/L (12-37); Bilirubin, Total 0.9 mg/dL (0.1-1.0); Blood Urea Nitrogen 11.0 mg/dL (8-24); CO2, Blood 33.0 mmol/L (21-32); Calcium, Blood 9.3 mg/dL (8.5-10.1); Chloride, Blood 100.0 mmol/L (98-108); Creatinine, Blood 0.54 mg/dL (0.60-1.20); Globulin, Blood 4.1 g/dL (2.2-4.0); Glucose, Blood 117.0 mg/dL (70-99); Potassium, Blood 3.7 mmol/L (3.5-5.5); Sodium, Blood 133.0 mmol/L (136-145); Total Protein, Blood 6.8 g/dL (6.4-8.2)
[2025-06-28 14:27] VITALS: BP 119/71
--- NOTE | 2025-06-28 16:49 | NUR ---
SUMMARY NO ACUTE CHANGES T/O SHIFT. PT REPOSITIONS SELF IN BED. LLE ELEVATED ON PILLOWS. MEDICATED PER ORDERS DURING DAY FOR PAIN. PT PLEASANT AND COOPERATIVE. CALL LIGHT IN REACH.
[2025-06-28 19:40] VITALS: BP 134/69
[2025-06-29 04:13] VITALS: BP 111/70
[2025-06-29 05:53] LABS: BASOPHILS ABSOLUTE AUTO 0.06 K/mm3 (0.00-0.23); BASOPHILS PERCENT AUTO 1 % (0-2); EOSINOPHILS ABSOLUTE AUTO 0.14 K/mm3 (0.00-0.68); EOSINOPHILS PERCENT AUTO 2 % (0-6); Hematocrit 37.4 % (37.0-53.0); Hemoglobin 12.1 g/dL (13.5-17.5); IMMATURE GRAN ABSOLUTE AUTO 0.02 K/mm3 (0.00-0.10); IMMATURE GRAN PERCENT AUTO 0 % (0-1); LYMPHOCYTES ABSOLUTE AUTO 1.73 K/mm3 (0.84-5.20); LYMPHOCYTES PERCENT AUTO 23 % (21-46); MONOCYTES ABSOLUTE AUTO 0.92 K/mm3 (0.16-1.47); MONOCYTES PERCENT AUTO 12 % (4-13); Mean Corpuscular HGB Conc 32.4 g/dL (31.5-36.5); Mean Corpuscular Volume 101 fL (80-100); NEUTROPHILS ABSOLUTE AUTO 4.59 K/mm3 (1.96-9.15); NEUTROPHILS PERCENT AUTO 62 % (41-73); NRBC ABSOLUTE 0.00 K/mm3 (0.00-0.02); NRBC Auto 0.0 /100 WBC (0.0-0.2); Platelet Count 400 K/mm3 (150-400); RDW Coefficient Variation 13.6 % (11.7-14.2); RDW Standard Deviation 50.4 fL (35.1-46.3)
[2025-06-29 06:10] LABS: Anion Gap 6.0 mmol/L (3-11); Blood Urea Nitrogen 10.0 mg/dL (8-24); CO2, Blood 32.0 mmol/L (21-32); Calcium, Blood 8.9 mg/dL (8.5-10.1); Chloride, Blood 101.0 mmol/L (98-108); Creatinine, Blood 0.44 mg/dL (0.60-1.20); Glucose, Blood 113.0 mg/dL (70-99); Potassium, Blood 3.9 mmol/L (3.5-5.5); Sodium, Blood 135.0 mmol/L (136-145)
[2025-06-29 07:35] VITALS: BP 118/72
[2025-06-29 15:33] VITALS: BP 137/86
[2025-06-29] MEDS ORDERED: Ipratropium/Albuterol SulF 2.5-0.5MG/3 ML Amp INH PRN (18:25)
[2025-06-29] MEDS ORDERED: Formoterol/Mometasone MDI 5/200 mcg 13 GM INH SCH (18:25)
--- NOTE | 2025-06-29 18:58 | NUR ---
SHIFT SUMMARY PT A&OX4. PT ADMITTED DUE TO ANKLE FX. PT HAS EXTERNAL HARDWERE. PT REPORTS PAIN, PAIN MANAGED PER EMAR. PT NON WEIGHT BEARING ON L FOOT. PT HAS FOOT ELEVATED. PT ACHS. NO COVERAGE NEEDED FOR MEALS TODAY. REPORTS "PREFER OXY AND TYLENOL TOGETHER." PT HAS MALE PERWICK IN PLACE. DEVICE WICKING ADEQUATELY, DUE TO "DIFFICULTY POSITIONING URINAL." PT EATS ADEQUATE. CIWA D/C TODAY. PT IN BED, BED IN LOWEST POSITION, CALL LIGHT IN REACH.
[2025-06-29 19:26] VITALS: BP 108/68
--- NOTE | 2025-06-30 04:01 | NUR ---
SHIFT SUMMARY NO ACUTE CHANGES THIS SHIFT. IS POD 5 S/P EXTERNAL FIXATION PLACEMENT TO LEFT ANKLE R/T FX. DRESSING TO LLE CDI, EXTREMITY ELEVATED T/O SHIFT. PT ABLE TO REPOSITION SELF WITH SLIGHT ASSISTANCE. ON BED REST PER ORDERS. PAIN MANAGED WITH PER EMAR WITH PO MEDS. EFRA PO INTAKE, DENIES N/V. PUREWICK IN PLACE, CLEAR YELLOW URINE NOTED IN CANISTER. ENCOURAGED DEEP BREATHING EXERCISES, IS ABLE TO DEMONSTRATE. PT CALM AND COOPERATIVE WITH CARE. PLAN TO CONT THERAPY AND POSSIBLE D/C TO SNF PENDING PLACEMENT. WILL REPORT TO ONCOMING RN. PT CURRENTLY RESTING IN BED WITH CALL LIGHT IN REACH AND RESP EVEN/UNLABOR ON 2L NC.
[2025-06-30 04:17] VITALS: BP 116/72
[2025-06-30 07:00] LABS: BASOPHILS ABSOLUTE AUTO 0.06 K/mm3 (0.00-0.23); BASOPHILS PERCENT AUTO 1 % (0-2); EOSINOPHILS ABSOLUTE AUTO 0.12 K/mm3 (0.00-0.68); EOSINOPHILS PERCENT AUTO 2 % (0-6); Hematocrit 38.8 % (37.0-53.0); Hemoglobin 12.3 g/dL (13.5-17.5); IMMATURE GRAN ABSOLUTE AUTO 0.01 K/mm3 (0.00-0.10); IMMATURE GRAN PERCENT AUTO 0 % (0-1); LYMPHOCYTES ABSOLUTE AUTO 1.87 K/mm3 (0.84-5.20); LYMPHOCYTES PERCENT AUTO 27 % (21-46); MONOCYTES ABSOLUTE AUTO 0.71 K/mm3 (0.16-1.47); MONOCYTES PERCENT AUTO 10 % (4-13); Mean Corpuscular HGB Conc 31.7 g/dL (31.5-36.5); Mean Corpuscular Volume 102 fL (80-100); NEUTROPHILS ABSOLUTE AUTO 4.09 K/mm3 (1.96-9.15); NEUTROPHILS PERCENT AUTO 60 % (41-73); NRBC ABSOLUTE 0.00 K/mm3 (0.00-0.02); NRBC Auto 0.0 /100 WBC (0.0-0.2); Platelet Count 428 K/mm3 (150-400); RDW Coefficient Variation 13.5 % (11.7-14.2); RDW Standard Deviation 50.8 fL (35.1-46.3)
[2025-06-30 07:20] LABS: Anion Gap 7.0 mmol/L (3-11); Blood Urea Nitrogen 9.0 mg/dL (8-24); CO2, Blood 33.0 mmol/L (21-32); Calcium, Blood 9.1 mg/dL (8.5-10.1); Chloride, Blood 99.0 mmol/L (98-108); Creatinine, Blood 0.57 mg/dL (0.60-1.20); Glucose, Blood 98.0 mg/dL (70-99); Potassium, Blood 3.7 mmol/L (3.5-5.5); Sodium, Blood 135.0 mmol/L (136-145)
[2025-06-30 07:33] VITALS: BP 131/91
--- NOTE | 2025-06-30 14:34 | NUR ---
DISCHARGE NOTE PATIENT A/OX4, ABLE TO MAKE NEEDS KNOWN. PLEASANT AND COOPERATIVE WITH CARE. NWB TO LEFT ANKLE, LEFT ANKLE WITH EXTERNAL FIXATION DEVICE IN PLACE. HARD PRESCRIPTION OF OXYCODONE IN PACKET FOR SKILLED FACILITY. VSS. PATIENT COMPLAINING OF CONSTIPATION THIS MORNING, PRN MIRALAX ADMINISTERED AND PATIENT WITH EXTRA LARGE BOWEL MOVEMENT THIS SHIFT. WHEELCHAIR TRASNPORTATION ARRIVED TO TAKE PATIENT TO [facility]. NO IV IN PLACE. REPORT GIVEN TO [facility] AND [facility]. ALL BELONGINGS SENT WITH PATIENT. NO OTHER CONCERNS AT THIS TIME.
== END 2025-06-30 14:33 ==
LOC: ER 01:33 → ERHOLD 12:50 → SURS 12:50 → ERHOLD 12:50 → SURS 15:47
PROVIDERS: Orthopaedic Surgery; ADMIT Hospitalist
PROC: 0QHK35Z Insertion of External Fixation Device into Left Fibula, Percutaneous Approach (ICD-10-PCS; principal; 2025-06-25 12:30)
PROC: 0QHH35Z Insertion of External Fixation Device into Left Tibia, Percutaneous Approach (ICD-10-PCS; principal; 2025-06-25 12:30)
DX: S82.842A Displaced bimalleolar fracture of left lower leg, initial encounter for closed fracture (principal); E11.42 Type 2 diabetes mellitus with diabetic polyneuropathy; I10 Essential (primary) hypertension; J44.9 Chronic obstructive pulmonary disease, unspecified; F17.210 Nicotine dependence, cigarettes, uncomplicated; K21.9 Gastro-esophageal reflux disease without esophagitis; G61.0 Guillain-Barre syndrome; G47.33 Obstructive sleep apnea (adult) (pediatric); D72.829 Elevated white blood cell count, unspecified; E66.01 Morbid (severe) obesity due to excess calories; Z68.42 Body mass index [BMI] 45.0-49.9, adult; Z79.1 Long term (current) use of non-steroidal anti-inflammatories (NSAID); Z79.82 Long term (current) use of aspirin; Z79.899 Other long term (current) drug therapy; Z88.0 Allergy status to penicillin; W01.0XXA Fall on same level from slipping, tripping and stumbling without subsequent striking against object, initial encounter; Y92.009 Unspecified place in unspecified non-institutional (private) residence as the place of occurrence of the external cause
CPT/HCPCS: 27810; 36415; 73590; 73600; 73610; 80048; 80053; 81001; 82947; 85025; 87040; 87086; 90471; 90715; 94640; 94664; 94760; 94762; 96374-59; 96375-59; 97110; 97162; 97530; 99152; 99153; 99285-25; A9270; C1713; G0378; J1100; J2250; J2270; J2405; J2704; J3010; J7030; J7120

== ENCOUNTER 2025-07-17 07:31 | Day surgery (SDC) | payer OTHER ==
[~2025-07-17] VITALS: Ht 185.4 cm; Wt 153.3 kg
[~2025-07-17 07:31] MED LIST changes: +ACET500 PO; +Bupivacaine 0.5% W/EPI 1:200000 SDV 30 ML Vial ONE; +IBUP600 PO; +PERCOCET 10-321 EA13 PO
[2025-07-17] MEDS ORDERED: Ipratropium/Albuterol SulF 2.5-0.5MG/3 ML Amp ONE (07:46)
[2025-07-17] MEDS ORDERED: CeFAZolin Sodium 3,000 MG VIAL ONE (07:46)
[2025-07-17] MEDS ORDERED: Ondansetron HCl 2 MG / ML 2ML Vial ONE (07:49)
[2025-07-17] MEDS ORDERED: Sugammadex Sodium 200 MG/2ML SDV (100 MG/ML) ONE (07:49)
[2025-07-17] MEDS ORDERED: Dexamethasone Sod Phos 10 MG/ML 1ML VIAL ONE (07:49)
[2025-07-17] MEDS ORDERED: Midazolam HCl 1MG / ML 2ML Vial ONE (07:49)
[2025-07-17] MEDS ORDERED: FentaNYL Citrate 50 MCG/ML 2 ML Injection ONE ×2 (07:49→11:33)
[2025-07-17] MEDS ORDERED: Rocuronium Bromide 10 MG/ML 5ML Injection IV ONE (07:49)
[2025-07-17] MEDS ORDERED: Glycopyrrolate 0.2 MG/ML 5ML VIAL ONE (08:10)
[2025-07-17] MEDS ORDERED: OXYC5 (08:14)
[2025-07-17] MEDS ORDERED: Citric Acid/Sodium Citrate 30 ML BTL ONE (08:49)
--- NOTE | 2025-07-17 09:01 | NUR ---
07[facility]17/25 [facility]01 [id number] DR COATS NOTIFIED THAT PATIENT HAS ALLERGY TO PENICILLINS CAUSING FACIAL SWELLING AND FULL BODY HIVES. PER DR COATS OK TO PROCEED WITH [facility]. DR NOBLE STATES DRS WILL DISCUSS ANTIBIOTICS.
--- NOTE | 2025-07-17 10:15 | NUR ---
07/17/25 [place]5 Ebony Sims ALCOHOL USED TO CLEAN BOTTOM OF FOOT
--- NOTE | 2025-07-17 11:57 | NUR ---
07/17/25 1157 [facility] PT RESPONSIVE, VSS, CAP REFILL ON SURGICAL LIMB LESS THAN 3 SECONDS. O2 SATS 94% ON RA.
[2025-07-17 12:05] VITALS: BP 130/84
--- NOTE | 2025-07-17 13:01 | NUR ---
07/17/25 1301 [facility] PT DENIES PAIN AND NAUSEA AT THIS TIME. PT AGREEABLE TO D/C HOME WITH [facility].
== END 2025-07-17 13:00 | disposition home or self-care (01) ==
LOC: ORSCSDS 07:31
PROVIDERS: Podiatrist Foot & Ankle Surgery
PROC: 0QSK04Z Reposition Left Fibula with Internal Fixation Device, Open Approach (ICD-10-PCS; principal; 2025-07-17 09:15)
PROC: 0QSH04Z Reposition Left Tibia with Internal Fixation Device, Open Approach (ICD-10-PCS; principal; 2025-07-17 09:15)
PROC: 0QP104Z Removal of Internal Fixation Device from Sacrum, Open Approach (ICD-10-PCS; principal; 2025-07-17 09:15)
DX: S82.842A Displaced bimalleolar fracture of left lower leg, initial encounter for closed fracture (principal); I10 Essential (primary) hypertension; J44.9 Chronic obstructive pulmonary disease, unspecified; F17.210 Nicotine dependence, cigarettes, uncomplicated; G47.33 Obstructive sleep apnea (adult) (pediatric); E11.42 Type 2 diabetes mellitus with diabetic polyneuropathy; K21.9 Gastro-esophageal reflux disease without esophagitis; E66.01 Morbid (severe) obesity due to excess calories; Z68.42 Body mass index [BMI] 45.0-49.9, adult; E78.5 Hyperlipidemia, unspecified; Z79.899 Other long term (current) drug therapy
CPT/HCPCS: 82947; 93005; 93010; A6253; A9270; C1713; C1769; J0690; J1100; J2250; J2405; J2704; J3010; J7120